=== PATIENT | male | born 1980 | race Hispanic/Latino ===

== ENCOUNTER 2016-12-10 17:50 | Inpatient (IN) | payer SELFPAY ==
[~2016-12-10] VITALS: Ht 175.3 cm; Wt 138.6 kg
[2016-12-10 18:10] VITALS: BP 135/91; PULSE 123; RESP 19; O2SAT 95
[2016-12-10 18:45] LABS: BASOPHILS % (AUTO) 0.2 % (0-3); EOSINOPHILS % (AUTO) 0 % (0-5); MONOCYTES % (AUTO) 6.7 % (4-12); Mean Corpuscular Hemoglobin 32.2 pg (27.0-35.0); Mean Corpuscular Volume 89.7 fL (81-100); NEUTROPHILS % (AUTO) 83.1 % (40-74); Platelet Count 203 bil/L (150-400)
[2016-12-10 19:29] LABS: Magnesium 1.6 mg/dL (1.6-2.6)
[2016-12-10 19:44] LABS: Lipase 941 U/L (13-60)
[2016-12-10 20:30] VITALS: BP 142/95; PULSE 122; RESP 28; O2SAT 96
--- NOTE | 2016-12-10 20:35 | ED.REPORT ---
HPI-Abd Pain M Under 38 Date of Service Dec 10, 2016 ED Provider: Jim Thorpe DO Pt is an otherwise healthy 36 year old male who presents to the ED complaining of abdominal pain onset yesterday. He c/o associated nausea and vomiting. He denies diarrhea. The pt was sent by urgent care after presenting with a blood sugar of 422. The pt denies DM, but he admits to excessive drinking 2 days ago. Nursing Notes Stated Complaint: ABD PAIN,HIGH GLUCOSE Chief Complaint: Male Abdominal Pain Nursing Notes Reviewed: Yes Allergies: Coded Allergies: No Known Allergies (Unverified , 12/11/16) No Active Prescriptions or Reported Meds General Time Seen by MD: 20:35 Chief Complaint Abdominal pain Hx Obtained From: Patient Arrived By: Walk-in Sudden in Onset?: No Onset Occurred: Yesterday Symptom Duration: Since onset Location: : Diffuse Quality: Painful Radiation: : Does not radiate Severity: Current: Moderate Severity: Maximum: Moderate Recent Healthcare: Recent doctor visit Similar Sx Previous: No Past Medical History Past Medical History Denies Past Surgical History Denies Smoking History Unknown if Ever Smoker Social History Alcohol Use: "Social" Drug Use: Denies drug use Other Social History: Good social support Review of Systems GI: Reports: Abdominal pain, Nausea, Vomiting, Denies: Diarrhea Complete sys rev & neg: except as marked. Physical Exam Initial Vital Signs Vital Signs (First) Date Time Temp Pulse Resp B/P Pulse Ox O2 Delivery O2 Flow Rate FiO2 12/10/16 18:10 37.5 123 19 135/91 95 Room Air Initial VS: Reviewed Head / Eyes: Atraumatic, Normocephalic Extremities: Vascular intact, Neuro intact Skin: Warm, Dry, No cyanosis Neurologic: Alert, Oriented Psychiatric: Mood/affect normal, Behavior normal General/Constitutional: Awake, Alert, Cooperative, Not toxic appearing Respiratory / Chest: Atraumatic, Breath sounds NL, Breath sounds = bilat Cardiovascular: Heart rate NL, Regular rhythm, Heart sounds NL Abdomen: Soft Tenderness/Guarding/Rebound: Positive: Tender diffuse (Moderate) Back: Atraumatic, Full range of motion Interpretation & Diagnostics Lab Results Interpretation Result Diagram: 12/11/16 0230 12/11/16 1508 Test 12/10/16 18:40 12/10/16 20:37 Hemoglobin A1c 13.0% (4.8-5.6) Lactic Acid Level 2.0mmol/L (0.4-2.0) Lipase 941U/L (13-60) Hold Braden Top Tube Received (Received) Ketones Small (Negative) Urine Color Yellow (YELLOW) Urine Appearance Clear (CLEAR,HAZY) Urine pH 5.5 (5.0-8.0) Urine Specific [place] 1.015 (1.003-1.035) Urine Protein Tracemg/dL (NEG,TRACE) Urine Glucose (UA) >1000mg/dL (NEGATIVE) Urine Ketones >80mg/dL (NEGATIVE) Urine Occult Blood Trace (NEGATIVE) Urine Nitrite Negative (NEGATIVE) Urine Bilirubin Negative (NEGATIVE) Urine Urobilinogen Normalmg/dL (NORMAL) Urine Leukocyte Esterase Negative (NEGATIVE) Urine RBC 0-2/hpf (0-2) Urine WBC 0-5/hpf (0-5) Urine Epithelial Cells Few/hpf (NONE-MOD) Urine Crystals None seen (NONE SEEN) Urine Bacteria Few/hpf (NONE-FEW) Urine Hyaline Casts None/lpf (NONE) Urine Granular Casts None seen (NONE SEEN) Urine Waxy Casts None seen (NONE SEEN) Urine Red Blood Cell Casts None seen (NONE SEEN) Urine White Blood Cell Casts None seen (NONE SEEN) Urine Mucus None seen (None Seen) Urine Trichomonas None seen (NONE SEEN) Urine Yeast None (NONE SEEN) Urinalysis Comment None Urine Culture Reflexed Not indicated ECG Interpretation ECG Interpretation: Sinus tachycardia with a rate of 120 Prolonged QT interval Time: 20:35 Interpreted by: ED physician CBC Interpretation WBC elevated BMP / CMP Interpretation Glucose elevated, Lipase elevated CT Abd / Pelvis Interpretation CONCLUSION: Findings of moderately severe acute pancreatitis. Mild Ascites. Minimal left pleural effusion. No finding of necrotizing necrotizing identified. Transmitted to the ED at 22:38 by Sukh Babin M.D Study type: Abdominal CT IV contrast Re-Eval/Medical Decision Med Decision/Clinical Course This is a very pleasant 36-year-old male who presents acutely ill. He is a heavy drinker and he drank heavily on Friday. Friday he developed diffuse abdominal pain. Since then he has had multiple bouts of vomiting and increasing diffuse pain. He was evaluated at the urgent care and he was found to be hyperglycemic and referred here. He does not have a history of diabetes. He was found to have diffusely tender abdominal examination with stable vitals. CT scan and laboratory work is consistent with acute pancreatitis and diabetic ketoacidosis. This gentleman was fluid resuscitated. Insulin drip initiated. He was also found to have severe hypocalcemia and this was treated as well. He will be admitted to the intensive care unit. Source of Hx: Old records Re-Evaluation/Progress : Time of Eval: 21:01 )( Re-Eval Abdomen: Soft Re-Evaluation/Progress Note: Pt rechecked. Informed pt of plan for admission. Pt understands and agrees with plan for admission. All questions were answered. Consultation : Referral / Consult Name: Estella Lowry Consulted With: Hospitalist Call Returned at: 22:54 Furrier Shop Supervisor: Will see patient, Agrees with eval, Agrees with plan, Accepts admit Differential Diagnosis: Positive: Abscess, Acute abdominal pain, Acute coronary syndrome, Angina / [place], Aortic dissection, Appendicitis, Inflam bowel disease Severity: Life-threatening, Serious condition Counseled Regarding: Diagnosis, Lab results, Need for admission Patient Discharge & Departure Primary Impression: Acute pancreatitis Pancreatitis type: alcohol induced Acute pancreatitis complication: unspecified Qualified Code: K85.20 - Alcohol induced acute pancreatitis without necrosis or infection Additional Impressions: Diabetic keto-acidosis Diabetes mellitus type: type 2 Diabetes mellitus complication detail: without coma Qualified Code: E13.10 - Other specified diabetes mellitus with ketoacidosis without coma Hypocalcemia Disposition: ADMITTED TO HOSPITAL Discharge Condition All VS Reviewed: Yes Condition: Stable Referrals: [facility] Crit Care Except Billable Proc Time Spent: 105-134 minutes (120 minutes managing IV fluids, insulin and pain control.) Services Performed: Patient management by me, Time spent at bedside, Reviewing test results, Reviewing imaging, Discussing patient care, Documentation in record, Time with fam/surrogate Scribe Attestation Portions of this note were transcribed by Qing Kumar. I, Dr. Fernandez personally performed the history, physical exam and medical decision-making; I reviewed and confirmed the accuracy of the information in the transcribed note. Signed by: Carrie Murrell, 12/10/16 and 21:00. copies to: [facility] Maurilio eFrnandez DO Dec 10, 2016 20:35 Qing Brice Dec 10, 2016 20:48 (NONE SEEN) Urine Red Blood Cell Casts None seen (NONE SEEN) Urine White Blood Cell Casts None seen (NONE SEEN) Urine Mucus None seen (None Seen) Urine Trichomonas None seen (NONE SEEN) Urine Yeast None (NONE SEEN) Urinalysis Comment None Urine Culture Reflexed Not indicated ECG Interpretation ECG Interpretation: Sinus tachycardia with a rate of 120 Prolonged QT interval Time: 20:35 Interpreted by: ED physician CT Abd / Pelvis Interpretation CONCLUSION: Findings of moderately severe acute pancreatitis. Mild Ascites. Minimal left pleural effusion. No finding of necrotizing necrotizing identified. Transmitted to the ED at 22:38 by Sukh Babin M.D Study type: Abdominal CT IV contrast Re-Eval/Medical Decision Source of Hx: Old records Re-Evaluation/Progress : Time of Eval: 21:01 )( Re-Eval Abdomen: Soft Re-Evaluation/Progress Note: Pt rechecked. Informed pt of plan for admission. Pt understands and agrees with plan for admission. All questions were answered. Consultation : Referral / Consult Name: AlenEstellamarietta Pelaez DO Consulted With: Hospitalist Call Returned at: 22:54 Furrier Shop Supervisor: Will see patient, Agrees with eval, Agrees with plan, Accepts admit Counseled Regarding: Diagnosis, Lab results, Need for admission Patient Discharge & Departure Primary Impression: Acute pancreatitis Pancreatitis type: alcohol induced Acute pancreatitis complication: unspecified Qualified Code: K85.20 - Alcohol induced acute pancreatitis without necrosis or infection Disposition: ADMITTED TO HOSPITAL Discharge Condition All VS Reviewed: Yes Condition: Stable Referrals: [facility] Carrie Attestation Portions of this note were transcribed by Qing Kumar. I, Dr. Fernandez personally performed the history, physical exam and medical decision-making; I reviewed and confirmed the accuracy of the information in the transcribed note. Signed by: Carrie Murrell, 12/10/16 and 21:00. copies to: [facility] Maurilio Fernandez DO Dec 10, 2016 20:35 Qing Brice Dec 10, 2016 20:48
[2016-12-10] MEDS ORDERED: 0.9% Sodium Chloride 1,000 ML IV ONE (20:40)
[2016-12-10] MEDS ORDERED: Calcium GLUCO 10% (mEq) Inj 9.3 MEQ in Dextrose 5% 100 ML IV ONE (20:40)
[2016-12-10 20:47] LABS: APPEARANCE,URINE CLEAR (CLEAR,HAZY); COLOR,URINE YELLOW (YELLOW); OCCULT BLOOD,URINE TRACE (NEGATIVE); PH,URINE 5.5 (5.0-8.0); UROBILINOGEN,URINE NORMAL (NORMAL)
[2016-12-10] MEDS: HYDROmorphone 0.5 mg/0.5 mL iSecure Syringe IVPUSH PRN ×2 (21:05→23:11)
[2016-12-10 23:07] VITALS: BP 146/83; PULSE 123; RESP 22; O2SAT 95
[2016-12-10] MEDS ORDERED: Ondansetron 2 mg/mL 2 mL Inj IVPUSH PRN (23:15)
[2016-12-10] MEDS ORDERED: Alum-Mag Hydrox-Simeth 30 mL Suspension PO PRN (23:15)
[2016-12-10] MEDS ORDERED: Senna-Docusate 8.6-50 mg Tablet PO PRN (23:15)
[2016-12-11] VITALS (7 sets, daily range): BP systolic 131–158; BP diastolic 94–103; PULSE 104–125; RESP 18–34; O2SAT 92–96
[2016-12-11] MEDS ORDERED: 0.9% Sodium Chloride 1,000 ML IV ONE (00:25)
[2016-12-11] MEDS: Insulin Human REGular 100 Units/100 mL NS IV SCH ×6 (00:59→20:47)
[2016-12-11] MEDS: Thiamine Inj 200 MG in Dextrose 5% 50 ML IV SCH ×2 (01:05→21:21)
--- NOTE | 2016-12-11 01:28 | ABG ---
DateTimeAnalyzed 01:20:16 -_ pH ____7.336 - 7.350 7.450 pCO2 ___28.1__ -mmHg 35.0 45.0 pO2 ___77.2__ -mmHg 69.0 116 HCO3- ___15.0__ -mmol/L 22.0 26.0 ABE ___-9.6__ -mmol/L tHb ___16.8__ -g/dL O2Hb ___94.2__ -% COHb ____1.7__ -% 1.5 MetHb ____0.4__ -% sO2 ___96.2__ -% FIO2 ___21.0__ -% Drawn By blf - Date/Time Notified____ 01:27:00 -_ Spontaneous_RR 30 -b/min Oxygen Device 1 _ROOM AIR - Notified By blf - Notified Whom YOSEPH DIALLO RN - K+ ____3.2__ -mmol/L tO2 ___22.3__ -Vol% Stas test _Positive -
[2016-12-11] MEDS: HYDROmorphone 1 mg/mL Inj IVPUSH PRN ×3 (01:45→21:20)
[2016-12-11] MEDS: 0.9% Sodium Chloride 1,000 ML IV SCH ×3 (01:45→16:25)
[2016-12-11 02:51] LABS: BASOPHILS % (AUTO) 0.2 % (0-3); EOSINOPHILS % (AUTO) 0 % (0-5); MONOCYTES % (AUTO) 6.6 % (4-12); Mean Corpuscular Hemoglobin 32.4 pg (27.0-35.0); Mean Corpuscular Volume 90.2 fL (81-100); NEUTROPHILS % (AUTO) 82.6 % (40-74); Platelet Count 194 bil/L (150-400)
--- NOTE | 2016-12-11 02:51 | PCM.HPMED ---
Subjective Date of Service Dec 11, 2016 Primary Provider: Admitting Physician: Estella Lowry DO Primary Care Physician: Breanna Attending Physician: Estella Lowry DO Admit Status: From the Emergency Department Chief Complaint: Patient is a 36-year-old male without significant medical history presents to the ED with 2 days of significant periumbilical pain. History of Present Illness: Per patient, states heavy EtOH use last Friday, 20 beers in the evening, then woke up on Friday morning with nausea, vomiting and significant epigastric pain that wraps around the back. Pain was unabated, characterized as somewhat wax and wane pattern. Patient was unable to tolerate any by mouth intake. Patient admits he has not been eating or drinking well for the past 2 days. Patient sought help at urgent care yesterday evening, where he was then referred to the ED for further evaluation after discovery of a blood glucose of 422, respiratory rate of 22, in addition to acetone breath. Patient denies any fevers, chills, or night sweats within the last few days. In the ED, patient was found to have elevated lipase of 941, in addition to an anion gap metabolic acidosis with ketones and glucose>1000 in the urine. Patient was thus admitted to the ICU for diabetic ketoacidosis in addition to acute pancreatitis, and possible alcohol withdrawal. Patient admits to endorsing at least 20 cans of 3% EtOH beers every other day for over 10 years. Patient has tried to quit once 7 years ago, at that time denies any withdrawal symptoms. Patient denies any smoking or use of street drugs. Patient states that he is usually in a state of good health thus, patient has not been seen by a primary care provider for at least over 5 years. Patient is unaware that he has any histories of diabetes. Pt is unaware of symptoms of polydipsia, polyphagia, or polyuria. Review of Systems: A comprehensive review of systems was conducted with the patient and found to be negative except as above in the History of Present Illness. Allergies Coded Allergies: No Known Allergies (Unverified , 12/11/16) Home Medications Denies taking any prescribed or pdbg-glc-gdhlxge medications No herbal supplements PMH Denies any past medical histories Never been hospitalized Surgical History Denies any surgical history Family History Father with diabetes type II [place] and a family history of early from coronary artery disease Social History Hx Alcohol Use: Yes (over 10 years) Hx Substance Use: No Smoking Status: Unknown if Ever Smoker Living Arrangement: with Family (lives with and small child) Exam Vital Signs Vital Sign - Last Date Time Temp Pulse Resp B/P Pulse Ox O2 Delivery O2 Flow Rate FiO2 12/11/16 00:39 37.6 119 25 149/97 96 Room Air Exam General: No acute distress, appropriately interactive, observed transferring self from gurney to bed, morbidly obese HEENT: Normocephalic, atraumatic. PERRLA, EOMI, Anicteric sclerae, moist conjunctivae. Neck: No JVD, No bruits. No lymphadenopathy or thyromegaly. Neck circumference greater than 19 inch Cardiovascular: Regular rate and rhythm with no murmurs, rubs, or gallops appreciated Pulmonary: b/l air sound with no crackles, wheezes, or rhonchi. no use of accessory muscles. Abdomen: Hypoactive bowel sounds, soft, nondistended, tenderness around the epigastric and back, no rebound tenderness, negative for Brasher sign, size of retroperitoneal bleeding Extremities: No clubbing or cyanosis, no lymphedema, no b/l lower leg edema Skin: Normal temperature, turgor, and texture; no rash. No visualized skin ulcer. Numerous skin tags around the neck and shoulder, acanthosis nigricans around the neck Neurological: CN II-VII grossly intact, moving equally on all 4 extremities Psychiatric: Normal mood and affect. AOx3 Lab and Diagnostics Result Diagram: 12/10/16 1840 12/10/16 1840 X-Rays, CTs and MRIs CT Abd / Pelvis Interpretation 12/10/2016 CONCLUSION: Findings of moderately severe acute pancreatitis. Mild Ascites. Minimal left pleural effusion. No finding of necrotizing necrotizing identified. Transmitted to the ED at 22:38 by Sukh Babin M.D Assessment & Plan Pt is a 36-year-old male without any significant medical history presented with epigastric pain, admitted for pancreatitis and diabetes ketoacidosis. Diabetic ketoacidosis, present on admission, active - Likely secondary to pancreatitis in the setting of undiagnosed diabetes type II - Initial anion gap at least 24.6, with ketones in the urine, and glucose of 458 - Patient received 2 L of bolus fluid, DKA protocol activated - Will start on lantus 26units daily once gap closes -hgba1c pending Acute pancreatitis, present on admission, active - has classic presentation abdominal pain with elevated lipase and CT-imaging to support - likely secondary to heavy EtOH abuse. BISAP score =1, low risk mortality. - "Pancreas rest", NPO for now. - Hydromorphone IV prn, antinausea medication when necessary - Cont NS 125cc/hr. Titrated to urine output greater than 0.5 mL/kg/hr. Anion gap metabolic acidosis, present on admission, active - Likely due to a combination of DKA and discontinuation alcohol ingestion - No secondary acid base disorder given Delta/delta =1 - Continue to monitor, hydrate as above Diabetes type II, present on admission, active - A1c pending, consider adding SGLT2 inhibitors at discharge if A1c >8 - will start with Lantus 26 units qd, will add short acting insulin sliding scale once patient eats - Diabetes education ordered Leukocytosis, present on admission, active - Likely reactive - Monitor Alcohol use disorder, present on admission, active - Supplement IV thiamine, start folate and vitamin B12 when patient can tolerate PO - CIWA protocol with withdrawal symptoms - Consult case management ordered Elevated blood pressure, present on admission, active - likely essential hypertension, probable obstructive sleep apnea - consider lisinopril once tolerate PO. - Will need sleep study outpatient Pseudohyponatremia, present on admission, active - Corrected sodium 134, normal - monitor Na Hypocalcemia, present on admission, active - replenished QT prolongation, present on admission, stable - QTc 525 - judicious use of ondansetron Morbid obesity, present on admission, stable - consulted dietitian. Will need weight lost strategies in addition to DM managements DVT prophylaxis: Lovenox subcutaneous Patient Status: Patient is admitted under inpatient status with expected length of stay GREATER than 2 midnights due to severity of presenting symptoms, risk of adverse event, and complexity of treatment plan. VTE Prophylaxis: Sub-Q Enoxaparin Resuscitation Status: CPR: Attempt Resuscitation Attending Statement The patient was seen and examined together with house staff on 12/11/2016 and I agree with the history, exam and plan as outlined in the note above. Gino Gordon DO Dec 11, 2016 02:51 Estella Lowry DO Dec 11, 2016 04:37
[2016-12-11] MEDS ORDERED: CALCIUM CHL IV ONE (04:00)
[2016-12-11] MEDS ORDERED: DEXTROSE 5% IV ONE (04:00)
[2016-12-11] MEDS ORDERED: KCl 40 mEq/500 mL D5W(K 3 - 3.7 & Creat < 2) IV ONE ×2 (04:55→22:15)
[2016-12-11] MEDS ORDERED: Mag Sulf 4 Gm/100 mL IV Premix (Mag < 1.6 & Creat < 2) IV ONE (04:55)
--- NOTE | 2016-12-11 06:12 | NUR ---
Admission to CCU Pt transferred from ER to CCU Room # 2011 at exactly midnight (0000). Pt able to stand himself up from the stretcher, walk to the scale and then back to the bed. Pt A&Ox4, can PEOPLES. Pt Tachycardic at 120-130bpm, Tachypnic at RR25-35, SpO2 >95% on RA at rest. Pt takes no medications and has not seen a doctor in 6 years. Admission completed. MRSA Swab collected and sent to lab. DKA insulin drip started. Anion GAP 29, now 25. Pt remains NPO due to DKA and Pancreatitis. Pt states his pain is controlled "well" with the current medications (Dilaudid 0.5mg Q4 Hours PRN). Pt reports no nausea. Pt given diabetes information booklet in Nauruan as this is a new diagnosis for him. Pt has low health literacy and will require lots of education about his health and taking care of himself. His is at bedside throughout the night.
--- NOTE | 2016-12-11 06:47 | NUR ---
Progress Note Pt continues to have increasing back pain. Pt endorses chronic back pain. Pt urinated multiple times throughout the night in incriments of about 100ml. Pt denies having to urinate this frequently in the past. Pt diaphoretic. Blood sugar checked and remains unchanged from last hourly level.
[2016-12-11] MEDS: D5W1/2NS 1,000 mL IV PRN ×2 (07:56→15:38)
--- NOTE | 2016-12-11 09:13 | DRSVH ---
PROCEDURE: CT ABDOMEN AND PELVIS WITH CONTRAST ([id number]) INDICATIONS: 36 year-old with abdominal pain, pancreatitis. TECHNIQUE: After the administration of intravenous contrast, 5 mm thick sections acquired from the diaphragm to the symphysis. 5 mm coronal and sagittal reformats were acquired. For radiation dose reduction, the following was used: automated exposure control, adjustment of mA and/or kV according to patient siz e. COMPARISON: None. FINDINGS: Image quality: Excellent. ABDOMEN: Lung bases: There is trace left effusion. Mild bibasilar atelectasis. Heart size is normal. Solid organs: There is diffuse hepatic fatty eventration. Liver and spleen are normal in size and en hancement. Gallbladder may contain gallstones or sludge. Biliary system is non dilated. There is d iffuse pancreatic edema. There is fluid around pancreas with peripancreatic stranding consistent with acute pancreatitis. Pancreas enhances uniformly. No pancreatic duct dilation or calcification. No p ancreatic pseudocyst. No adrenal nodules. Kidneys demonstrate normal size and enhancement, without h ydronephrosis. Peritoneum and bowel: The duodenum appear thickened. Bowel loops demonstrate normal wall thickness a nd caliber. The appendix is normal. No free air. There is a small amount of free fluid. Nodes and vessels: No retroperitoneal or mesenteric adenopathy by size criteria. Aorta and inferior vena cava are normal in size. Miscellaneous: No ventral hernias. PELVIS: Genitourinary: Bladder wall thickness is normal. Miscellaneous: No inguinal hernias or adenopathy. Bones: No suspicious bony lesions. No vertebral body compression fractures. IMPRESSION: 1. The CT findings are consistent with acute pancreatitis. 2. Second duodenum consistent with duodenitis. This finding may be secondary to direct spread of infl ammation from acute pancreatitis. Recommend clinical correlation followup. 3. Possible gallstones. 4. Hepatic steatosis. 5. A small amount of ascites. 6. Trace left effusion. No significant discrepancy with the material handler 1st shift radiology preliminary report. Dictated by: Keeley Shirley M.D. on 12/11/2016 at 9:04 Approved by: Keeley Shirley M.D. on 12/11/2016 at 9:11
[2016-12-11] MEDS ORDERED: HYDROmorphone 0.5 mg/0.5 mL iSecure Syringe ONE ×2 (10:29→15:36)
--- NOTE | 2016-12-11 13:15 | NUR ---
NUTRITION ASSESSMENT: ASSESS: Pt is a 36yo M admitted to CCU for pancreatitis and new diagnosis of DM. Currently NPO and on DKA protocol and CIWA protocol. 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 Pt and have been trying to lose wt by drinking apple cider vinegar in the morning and at night. PMHX: no PMH LABS: Reviewed. Na 133, client care representative .54, glu 230, ca 6.9, Alb 3.1, A1C 13.0 MEDS: Reviewed. Thiamine, Zofran, insulin GI: 0 BM SKIN: no major issues CURRENT WTS: 132.7kg, BMI 43.2kg/m2, IBW: 72.7kg, adj BW: 87.7kg DIET: NPO EST. NEEDS: BMI Kcals: 2195-2630kcal/day (25-30kcal/kg adj bw) Pro: 105-130g/day (1.2-1.5g/kg adj bw) NUTRITION DIAGNOSIS: 1.) Altered nutrition related lab values related to endocrine dysfunction as evidence by new diagnosis of DM and A1C of 13.0 2.) Inadequate oral intake related to decreased ability to consume sufficient energy as evidenced by current NPO status NUTRITION INTERVENTION: 1.) DM diet education provided w/economic forecaster. Please see inpt dm diet ed under care activity for further information regarding education 2.) Briefly discussed how drinking large amounts of alcohol can fill you up and make you not hungry for food which can lead to many health issues including malnutrition. Pt verbalized importance of eating regular meals/portions and avoiding alcohol. Understands need to make change in diet/lifestyle. 3.) Recommend advance diet when medically appropriate. MONITOR / EVAL: NPO, wt, gi, labs, POC, nutrition status. Will continue to monitor per high nutrition risk guidelines
--- NOTE | 2016-12-11 16:11 | NUR ---
Continued abd & back discomfort relieved with Dilaudid IVPs as ordered. Denies nausea, wants to eat. Is able to take ice chips this afternoon. Insulin and IVFs per DKA protocol, anion gap 14. Current CMP pending. Most likely will transition to SQ insulin and transfer to PCC/tele status. Voiding dark blake urine, small, frequent amounts via urinal. Vital signs stable, low-grade temp improved. Sinus tachycardia on tele, somewhat hypertensive persistently. Has declined jumpbasting canvas baster; supportive Bulgarian and Ecuadorean-speaking at bedside.
[2016-12-11] MEDS ORDERED: Glucose 40% Oral Gel 15 Gm Tube PO PRN (18:00)
[2016-12-11] MEDS ORDERED: Dextrose 10% 250 ML IV PRN (18:00)
[2016-12-11] MEDS ORDERED: 0.9% Sodium Chloride 1,000 ML IV SCH (18:40)
[2016-12-11] MEDS: Insulin LISPRO 300 Unit/3 mL Inj SUBQ SCH ×2 (19:09→22:00)
[2016-12-11] MEDS ORDERED: Insulin GLARgine 100 Unit/mL Syringe SUBQ SCH ×2 (21:00)
--- NOTE | 2016-12-11 21:33 | PCM.PNMED ---
Subjective Date of Service Dec 11, 2016 Subjective Overnight Events. No acute events overnight. He is resting in bed and is having some lower back pain, but in no acute distress. He's been having abdominal pain 3/10, back pain 3/10, nausea and dry heaving. The patient denies headache, dizziness, sore throat, cough, chest pain , shortness of breath, constipation, and diarrhea. The patient is voiding and eliminating without difficulty. Exam Vital Signs Vital Sign - Last Date Time Temp Pulse Resp B/P Pulse Ox O2 Delivery O2 Flow Rate FiO2 12/11/16 15:51 37.0 109 20 158/103 95 Room Air Intake and Output 12/10/16 12/10/16 12/11/16 Cumulative From/Thru 15:00 23:00 07:00 12/10/16 18:10 - 12/11/16 05:35 Intake Total 2065 ml 2065 ml Output Total 1080 ml 1080 ml Balance 985 ml 985 ml Intake Oral 0 ml 0 ml IV Total 2065 ml 2065 ml Output Urine Total 1080 ml 1080 ml # Bowel Movements 0 0 Exam General: No acute distress, well-developed, well-nourished, appropriately interactive, morbidly obese HEENT: Normocephalic, atraumatic. Anicteric sclerae, moist conjunctivae Cardiovascular: Regular rate and rhythm with no murmurs, rubs, or gallops appreciated Pulmonary: Clear to auscultation bilaterally with no crackles, wheezes, or rhonchi. Normal respiratory effort with no use of accessory muscles. Abdomen: Bowel tones present. Soft, tender RUQ and LUQ > LLQ , nondistended. No hepatosplenomegaly or masses appreciated. Extremities: No clubbing, cyanosis, edema Skin: Normal temperature, dry, cracking skin Neurological: Cranial nerves grossly intact. Normal muscle strength, tone, and bulk. Psychiatric: Normal mood and affect. Alert and oriented to person, place, and time. Lab and Diagnostics Laboratory Tests 72 Hours Test 12/10/16 18:40 12/10/16 20:37 12/10/16 23:27 12/11/16 00:00 White Blood Count 12.0th/mm3 (3.8-10.1) Red Blood Count 5.43mil/mm3 (4.40-5.80) Hemoglobin 17.5g/dL (13.8-17.2) Hematocrit 48.7% (41.0-50.0) Mean Corpuscular Volume 89.7fL (81-100) Mean Corpuscular Hemoglobin 32.2pg (27.0-35.0) Mean Corpuscular Hemoglobin Concent 35.9% (32.0-37.0) Red Cell Distribution Width 12.7% (12.3-15.4) Platelet Count 203bil/L (150-400) Neutrophils (%) (Auto) 83.1% (40-74) Lymphocytes (%) (Auto) 9.7% (14-46) Monocytes (%) (Auto) 6.7% (4-12) Eosinophils (%) (Auto) 0% (0-5) Basophils (%) (Auto) 0.2% (0-3) Sodium Level 125mEq/L (134-144) Potassium Level 4.4mEq/L (3.5-5.2) Chloride Level 84mEq/L (97-108) Carbon Dioxide Level 12mmol/L (18-29) Blood Urea Nitrogen 10mg/dL (6-20) Creatinine 0.81mg/dL (0.76-1.27) Estimat Glomerular Filtration Rate 113mL/min (>59) Glucose Level 458mg/dL (60-99) Hemoglobin A1c 13.0% (4.8-5.6) Lactic Acid Level 2.0mmol/L (0.4-2.0) Calcium Level 6.1mg/dL (8.5-10.1) Magnesium Level 1.6mg/dL (1.6-2.6) 1.6mg/dL (1.6-2.6) Total Bilirubin 0.6mg/dL (0.0-1.2) Aspartate Amino Transf (AST/SGOT) < 5U/L (0-50) Alanine Aminotransferase (ALT/SGPT) < 5U/L (0-44) Alkaline Phosphatase 71U/L (25-150) Total Protein 7.1g/dL (6.4-8.4) Albumin 3.5g/dL (3.4-5.0) Lipase 941U/L (13-60) Hold Braden Top Tube Received (Received) Ketones Small (Negative) Urine Color Yellow (YELLOW) Urine Appearance Clear (CLEAR,HAZY) Urine pH 5.5 (5.0-8.0) Urine Specific [place] 1.015 (1.003-1.035) Urine Protein Tracemg/dL (NEG,TRACE) Urine Glucose (UA) >1000mg/dL (NEGATIVE) Urine Ketones >80mg/dL (NEGATIVE) Urine Occult Blood Trace (NEGATIVE) Urine Nitrite Negative (NEGATIVE) Urine Bilirubin Negative (NEGATIVE) Urine Urobilinogen Normalmg/dL (NORMAL) Urine Leukocyte Esterase Negative (NEGATIVE) Urine RBC 0-2/hpf (0-2) Urine WBC 0-5/hpf (0-5) Urine Epithelial Cells Few/hpf (NONE-MOD) Urine Crystals None seen (NONE SEEN) Urine Bacteria Few/hpf (NONE-FEW) Urine Hyaline Casts None/lpf (NONE) Urine Granular Casts None seen (NONE SEEN) Urine Waxy Casts None seen (NONE SEEN) Urine Red Blood Cell Casts None seen (NONE SEEN) Urine White Blood Cell Casts None seen (NONE SEEN) Urine Mucus None seen (None Seen) Urine Trichomonas None seen (NONE SEEN) Urine Yeast None (NONE SEEN) Urinalysis Comment None Urine Culture Reflexed Not indicated Triglycerides Level 379.2mg/dL (0-149) Osmolality 302 (275-300) Test 12/11/16 02:30 12/11/16 09:06 12/11/16 15:08 12/11/16 17:40 White Blood Count 9.8th/mm3 (3.8-10.1) Red Blood Count 5.12mil/mm3 (4.40-5.80) Hemoglobin 16.6g/dL (13.8-17.2) Hematocrit 46.2% (41.0-50.0) Mean Corpuscular Volume 90.2fL (81-100) Mean Corpuscular Hemoglobin 32.4pg (27.0-35.0) Mean Corpuscular Hemoglobin Concent 35.9% (32.0-37.0) Red Cell Distribution Width 12.7% (12.3-15.4) Platelet Count 194bil/L (150-400) Neutrophils (%) (Auto) 82.6% (40-74) Lymphocytes (%) (Auto) 10.2% (14-46) Monocytes (%) (Auto) 6.6% (4-12) Eosinophils (%) (Auto) 0% (0-5) Basophils (%) (Auto) 0.2% (0-3) Sodium Level 133mEq/L (134-144) 133mEq/L (134-144) 134mEq/L (134-144) 133mEq/L (134-144) Potassium Level 3.3mEq/L (3.5-5.2) 3.8mEq/L (3.5-5.2) 3.6mEq/L (3.5-5.2) 3.7mEq/L (3.5-5.2) Chloride Level 95mEq/L (97-108) 100mEq/L (97-108) 101mEq/L (97-108) 101mEq/L (97-108) Carbon Dioxide Level 14mmol/L (18-29) 19mmol/L (18-29) 19mmol/L (18-29) 19mmol/L (18-29) Blood Urea Nitrogen 10mg/dL (6-20) 9mg/dL (6-20) 9mg/dL (6-20) 9mg/dL (6-20) Creatinine 0.68mg/dL (0.76-1.27) 0.54mg/dL (0.76-1.27) 0.46mg/dL (0.76-1.27) 0.39mg/dL (0.76-1.27) Estimat Glomerular Filtration Rate 139mL/min (>59) 181mL/min (>59) 218mL/min (>59) 263mL/min (>59) Glucose Level 336mg/dL (60-99) 230mg/dL (60-99) 202mg/dL (60-99) 231mg/dL (60-99) Calcium Level 6.2mg/dL (8.5-10.1) 6.9mg/dL (8.5-10.1) 6.6mg/dL (8.5-10.1) 6.7mg/dL (8.5-10.1) Total Bilirubin 0.6mg/dL (0.0-1.2) Aspartate Amino Transf (AST/SGOT) 16U/L (0-50) Alanine Aminotransferase (ALT/SGPT) 14U/L (0-44) Alkaline Phosphatase 62U/L (25-150) Total Protein 6.2g/dL (6.4-8.4) Albumin 3.1g/dL (3.4-5.0) Magnesium Level 3.0mg/dL (1.6-2.6) Test 12/11/16 20:40 Result Diagram: 12/11/16 0230 12/11/16 1740 Microbiology Microbiology 12/11/16 MRSA (PCR) - negative X-Rays, CTs and MRIs CT Abd / Pelvis Interpretation 12/10/2016 CONCLUSION: Findings of moderately severe acute pancreatitis. Mild Ascites. Minimal left pleural effusion. No finding of necrotizing necrotizing identified. Transmitted to the ED at 22:38 by Sukh Babin M.D 12-lead ECG Sinus tachycardia with a rate of 120 Prolonged QT interval Assessment & Plan Pt is a 36-year-old male without any significant medical history presented with epigastric pain, admitted for pancreatitis and diabetes ketoacidosis. Diabetic ketoacidosis, present on admission, improving - Likely secondary to pancreatitis in the setting of undiagnosed diabetes type II - Initial anion gap at least 24.6, with ketones in the urine, and glucose of 458. Now improved to anion gap of 14 and glucose of 204. - Patient received 2 L of bolus fluid, DKA protocol now discontinued. Started NS + 30 mEq potassium at 150 mL/hour - Started on 40 units of Lantus with high dose correctional scale. Patient recieved 103 units of insulin over 12 hours on drip. - hgba1c 13 Acute pancreatitis, present on admission, active - has classic presentation abdominal pain with elevated lipase and CT-imaging to support - likely secondary to heavy EtOH abuse. BISAP score =1, low risk mortality. - "Pancreas rest", NPO for now. Can advance to clear liquids over night if patient is tolerating pain. - Hydromorphone IV prn, antinausea medication when necessary - Fluids as above Diabetes type II, present on admission, active - A1c 13 - Started Lantus 40 units qd with high dose correctional scale. - Diabetes education ordered Alcohol use disorder, present on admission, active - Supplement IV thiamine, start folate and vitamin B12 when patient can tolerate PO - CIWA protocol with withdrawal symptoms - Consult case management ordered Elevated blood pressure, present on admission, active - likely essential hypertension, probable obstructive sleep apnea - consider lisinopril once tolerate PO. - Will need sleep study outpatient Pseudohyponatremia, present on admission, active - Corrected sodium 136, normal - monitor Na Hypocalcemia, present on admission, active - replenished QT prolongation, present on admission, stable - QTc 525 - judicious use of ondansetron Morbid obesity, present on admission, stable - consulted dietitian. Will need weight lost strategies in addition to DM managements Anion gap metabolic acidosis, present on admission, resolved - Likely due to a combination of DKA and discontinuation alcohol ingestion - No secondary acid base disorder given Delta/delta =1 - Continue to monitor, hydrate as above Leukocytosis, present on admission, resolved - Likely reactive - Monitor High Risk medications: None DVT prophylaxis: Lovenox subcutaneous Disposition: Patient will likely require at least 2-3 more days of hospital stay , following advancing diets to full diet and stabilization of anion gap and blood glucose. Pain Evaluation: Adequate Pain Control VTE Prophylaxis: Sub-Q Enoxaparin Resuscitation Status: CPR: Attempt Resuscitation Attending Statement The patient was seen and examined together with Dr. Villarreal on 12/11/2016 and I agree with the history, exam and plan as outlined in the note above. . Sumeet Villarreal DO Dec 11, 2016 21:33 Yusuf Bonds MD Dec 13, 2016 07:02
[2016-12-11] MEDS: Dextrose 5% 0.9% NaCl 1,000 ML IV SCH (21:54)
--- NOTE | 2016-12-11 22:21 | NUR ---
Transfer to CCU Pt transferred back to CCU status for DKA insulin gtt to close anion gap. K Nicolás infusing for low K level. Thiamine infusing.
[2016-12-12] MEDS: HYDROmorphone 1 mg/mL Inj IVPUSH PRN ×4 (02:15→17:16)
[2016-12-12] MEDS: Dextrose 5% 0.9% NaCl 1,000 ML IV SCH (02:32)
[2016-12-12] MEDS ORDERED: Insulin Human REGular 100 Units/100 mL NS IV SCH ×2 (03:05)
[2016-12-12 04:35] LABS: BASOPHILS % (AUTO) 0.3 % (0-3); MONOCYTES % (AUTO) 9.5 % (4-12); Mean Corpuscular Volume 92.2 fL (81-100); NEUTROPHILS % (AUTO) 71.5 % (40-74); Platelet Count 156 bil/L (150-400)
[2016-12-12 04:55] LABS: Phosphorus 1.2 mg/dL (2.5-4.9)
[2016-12-12] MEDS: 0.9% Sodium Chloride 1,000 ML IV SCH ×3 (05:27→23:39)
[2016-12-12 05:39] VITALS: BP 143/94; PULSE 98; RESP 19; O2SAT 97
--- NOTE | 2016-12-12 05:43 | NUR ---
Transfer to [facility] Pt d/c'ed from CCU at 0540 this morning. Pt removed from DKA insulin drip and started on NDKA insulin drip to maintain tight control of the patient's blood sugars. Currently he is on algorithm 3 at 5units/hour. NS infusing at 100ml/hour; and D5NS infusing at 50ml/hour. Pt having sips and chips. Tolerated well. Pt having frequency with urination and poor output. Tried three times to bladder scan patient on two occasions with two separate nurses and was unable to obtain a bladder volume. Pt refused in and out cath at this time. Will pass along information to day team/day RN. Pt received KCL rider this afternoon in addition to scheduled Thiamine. Oxygenation needs increasing despite clear lung sounds and poor urine output/adequate kidney function tests. Pt requires 2L NC while up in chair to maintain saturation of 95% and 4L NC HS while sleeping. Suspect strongly that patient has profound obstructive sleep apnea. [facility] screening form/protocol and referral completed and faxed to listed number. Pt was incontinent of urine once last night.
[2016-12-12 08:00] VITALS: PULSE 101
[2016-12-12 08:30] VITALS: BP 140/94; PULSE 102; RESP 13; O2SAT 94
[2016-12-12] MEDS ORDERED: Potassium Phos (mEq) Inj 20 MEQ in Dextrose 5% 250 ML IV ONE (08:30)
[2016-12-12] MEDS: Multivit-Miner-Folic Acid-Iron Tablet PO SCH (08:30)
[2016-12-12] MEDS: chlordiazePOXIDE 25 mg Capsule PO PRN (11:15)
[2016-12-12 12:45] VITALS: BP 125/73; PULSE 103; RESP 20; O2SAT 96
--- NOTE | 2016-12-12 15:23 | NUR ---
Social Work: Chemical Dependency Assessment Data: Per EMR review, pt is a 36 year old male admitted for acute pancreatitis, hypocalcemia. Pt is self-pay insurance; [facility] has screened the patient for Medicaid. The patient is over-resourced for medicaid and is self-pay. Pt has no PCP. NOK is Cecy Gómez, . Advanced directives not completed- Croatian directives provided to pt. Readmit score is low, 1/8. DIAGNOSTIC RADIOLOGIC TECHNOLOGIST met with pt and spouse at bedside to discuss discharge planning and complete CD assessment. Pt declined use of an parole officer and wishes for his to translate. Pt and live together in [place], Pt is I at baseline, uses no DME and continues to drive. Current ETOH use: pt states that he consumes approximately an 18pack of beer every 2-3 days. Pt states he has never experienced any withdrawal symptoms including ETOH seizures. Pt has never completed treatment and states that he does not feel that he needs it at this time. The pt's however states that the pt would benefit and would like some information. DIAGNOSTIC RADIOLOGIC TECHNOLOGIST provided her with outpatient CD resources including [facility]. MH History/Suicide Risk: Pt denies any MH history and any current or past suicidal/homicidal ideation, plan or intent. Natural supports: Pt states that his and family are his biggest supports. Plan: Pt is agreeable to a referral being made to [facility] for primary care and he states that his plan is to return to the ER/hospital for regular care. DIAGNOSTIC RADIOLOGIC TECHNOLOGIST requested [employer] make pt a new patient appointment at [facility]. Pt's spouse provided with outpatient CD resources along with AA schedule. Anticipate pt to discharge home via POV once medically stable; DIAGNOSTIC RADIOLOGIC TECHNOLOGIST to continue to follow. KIANA Mccurdy
[2016-12-12] MEDS ORDERED: Dextrose 10% 250 ML IV PRN (16:05)
[2016-12-12] MEDS ORDERED: Glucose 40% Oral Gel 15 Gm Tube PO PRN (16:05)
[2016-12-12] MEDS: Insulin LISPRO 300 Unit/3 mL Inj SUBQ SCH ×2 (17:58→22:00)
[2016-12-12 19:37] LABS: Phosphorus 1.4 mg/dL (2.5-4.9)
--- NOTE | 2016-12-12 20:14 | NUR ---
Abd pain/tele Pt. reporting abd. pain to be 3-5/10. IV dilaudid 0.5mg has been helpful, hopefully transitioning to po pain mng. Pt. denied having any n/v. Pt. was on insulin gtt, reading in the 160s-170s. At 1500, Dr. Bonds ordered for insulin to be stopped as well as the D5NS. Pt. continues to have IV fluids infusing per orders. AC blood sugar was 168, pt. was given 2units of coverage. CIWA, pt. has been 0, with some mild sweating. Pt. was given po librium x1 with good relief. , Cecy at bedside. Tele has been reading ST in the 90s, occassional 120s with activity. Report given to onel Pelayo RN to continue care.
[2016-12-12 20:26] VITALS: BP 137/83; PULSE 96; RESP 22; O2SAT 96
[2016-12-12] MEDS: Thiamine Inj 200 MG in Dextrose 5% 50 ML IV SCH (20:26)
[2016-12-12] MEDS ORDERED: Insulin GLARgine 100 Unit/mL Syringe SUBQ SCH (21:00)
[2016-12-12 22:54] VITALS: BP 147/87; PULSE 97; RESP 16; O2SAT 94
--- NOTE | 2016-12-12 23:00 | PCM.PNMED ---
Subjective Date of Service Dec 12, 2016 Subjective Overnight Events. 10 PM, Pt transferred back to CCU status for DKA insulin gtt to close anion gap. 540 AM Pt d/c'ed from CCU and removed from DKA insulin drip and started on NDKA insulin drip to maintain tight control of the patient's blood sugars. He is resting in bed comfortably and in no acute distress. The patient reports feeling better than the day prior. His abdominal pain is improved as well as his nausea. He is still having sweating and some anxiety. The patient denies headache, dizziness, sore throat, cough, chest pain, shortness of breath, vomiting, constipation, and diarrhea. Exam Vital Signs Vital Sign - Last Date Time Temp Pulse Resp B/P Pulse Ox O2 Delivery O2 Flow Rate FiO2 12/12/16 20:26 38.0 96 22 137/83 96 Nasal Cannula 2.00 Intake and Output 12/11/16 12/11/16 12/12/16 Cumulative From/Thru 15:00 23:00 07:00 12/10/16 18:10 - 12/12/16 05:37 Intake Total 4513 ml 4204 ml 17542 ml Output Total 750 ml 580 ml 2410 ml Balance 3763 ml 3624 ml 8372 ml Intake Oral 50 ml 50 ml 100 ml IV Total 4463 ml 4154 ml 20575 ml Output Urine Total 750 ml 580 ml 2410 ml # Voids 1 1 # Bowel Movements 0 0 0 Exam General: No acute distress, well-developed, well-nourished, appropriately interactive, morbidly obese HEENT: Normocephalic, atraumatic. Anicteric sclerae, moist conjunctivae Cardiovascular: Regular rate and rhythm with no murmurs, rubs, or gallops appreciated Pulmonary: Clear to auscultation bilaterally with no crackles, wheezes, or rhonchi. Normal respiratory effort with no use of accessory muscles. Abdomen: Bowel tones present. Soft, tender RUQ and LUQ > LLQ improved from yesterday , nondistended. No hepatosplenomegaly or masses appreciated. Extremities: No clubbing, cyanosis, edema Skin: Normal temperature, dry, cracking skin Neurological: Cranial nerves grossly intact. Normal muscle strength, tone, and bulk. Psychiatric: Normal mood and affect. Alert and oriented to person, place, and time. Lab and Diagnostics Laboratory Tests 72 Hours Test 12/10/16 18:40 12/10/16 20:37 12/10/16 23:27 12/11/16 00:00 White Blood Count 12.0th/mm3 (3.8-10.1) Red Blood Count 5.43mil/mm3 (4.40-5.80) Hemoglobin 17.5g/dL (13.8-17.2) Hematocrit 48.7% (41.0-50.0) Mean Corpuscular Volume 89.7fL (81-100) Mean Corpuscular Hemoglobin 32.2pg (27.0-35.0) Mean Corpuscular Hemoglobin Concent 35.9% (32.0-37.0) Red Cell Distribution Width 12.7% (12.3-15.4) Platelet Count 203bil/L (150-400) Neutrophils (%) (Auto) 83.1% (40-74) Lymphocytes (%) (Auto) 9.7% (14-46) Monocytes (%) (Auto) 6.7% (4-12) Eosinophils (%) (Auto) 0% (0-5) Basophils (%) (Auto) 0.2% (0-3) Sodium Level 125mEq/L (134-144) Potassium Level 4.4mEq/L (3.5-5.2) Chloride Level 84mEq/L (97-108) Carbon Dioxide Level 12mmol/L (18-29) Blood Urea Nitrogen 10mg/dL (6-20) Creatinine 0.81mg/dL (0.76-1.27) Estimat Glomerular Filtration Rate 113mL/min (>59) Glucose Level 458mg/dL (60-99) Hemoglobin A1c 13.0% (4.8-5.6) Lactic Acid Level 2.0mmol/L (0.4-2.0) Calcium Level 6.1mg/dL (8.5-10.1) Magnesium Level 1.6mg/dL (1.6-2.6) 1.6mg/dL (1.6-2.6) Total Bilirubin 0.6mg/dL (0.0-1.2) Aspartate Amino Transf (AST/SGOT) < 5U/L (0-50) Alanine Aminotransferase (ALT/SGPT) < 5U/L (0-44) Alkaline Phosphatase 71U/L (25-150) Total Protein 7.1g/dL (6.4-8.4) Albumin 3.5g/dL (3.4-5.0) Lipase 941U/L (13-60) Hold Braden Top Tube Received (Received) Ketones Small (Negative) Urine Color Yellow (YELLOW) Urine Appearance Clear (CLEAR,HAZY) Urine pH 5.5 (5.0-8.0) Urine Specific [place] 1.015 (1.003-1.035) Urine Protein Tracemg/dL (NEG,TRACE) Urine Glucose (UA) >1000mg/dL (NEGATIVE) Urine Ketones >80mg/dL (NEGATIVE) Urine Occult Blood Trace (NEGATIVE) Urine Nitrite Negative (NEGATIVE) Urine Bilirubin Negative (NEGATIVE) Urine Urobilinogen Normalmg/dL (NORMAL) Urine Leukocyte Esterase Negative (NEGATIVE) Urine RBC 0-2/hpf (0-2) Urine WBC 0-5/hpf (0-5) Urine Epithelial Cells Few/hpf (NONE-MOD) Urine Crystals None seen (NONE SEEN) Urine Bacteria Few/hpf (NONE-FEW) Urine Hyaline Casts None/lpf (NONE) Urine Granular Casts None seen (NONE SEEN) Urine Waxy Casts None seen (NONE SEEN) Urine Red Blood Cell Casts None seen (NONE SEEN) Urine White Blood Cell Casts None seen (NONE SEEN) Urine Mucus None seen (None Seen) Urine Trichomonas None seen (NONE SEEN) Urine Yeast None (NONE SEEN) Urinalysis Comment None Urine Culture Reflexed Not indicated Triglycerides Level 379.2mg/dL (0-149) Osmolality 302 (275-300) Test 12/11/16 02:30 12/11/16 09:06 12/11/16 15:08 12/11/16 17:40 White Blood Count 9.8th/mm3 (3.8-10.1) Red Blood Count 5.12mil/mm3 (4.40-5.80) Hemoglobin 16.6g/dL (13.8-17.2) Hematocrit 46.2% (41.0-50.0) Mean Corpuscular Volume 90.2fL (81-100) Mean Corpuscular Hemoglobin 32.4pg (27.0-35.0) Mean Corpuscular Hemoglobin Concent 35.9% (32.0-37.0) Red Cell Distribution Width 12.7% (12.3-15.4) Platelet Count 194bil/L (150-400) Neutrophils (%) (Auto) 82.6% (40-74) Lymphocytes (%) (Auto) 10.2% (14-46) Monocytes (%) (Auto) 6.6% (4-12) Eosinophils (%) (Auto) 0% (0-5) Basophils (%) (Auto) 0.2% (0-3) Sodium Level 133mEq/L (134-144) 133mEq/L (134-144) 134mEq/L (134-144) 133mEq/L (134-144) Potassium Level 3.3mEq/L (3.5-5.2) 3.8mEq/L (3.5-5.2) 3.6mEq/L (3.5-5.2) 3.7mEq/L (3.5-5.2) Chloride Level 95mEq/L (97-108) 100mEq/L (97-108) 101mEq/L (97-108) 101mEq/L (97-108) Carbon Dioxide Level 14mmol/L (18-29) 19mmol/L (18-29) 19mmol/L (18-29) 19mmol/L (18-29) Blood Urea Nitrogen 10mg/dL (6-20) 9mg/dL (6-20) 9mg/dL (6-20) 9mg/dL (6-20) Creatinine 0.68mg/dL (0.76-1.27) 0.54mg/dL (0.76-1.27) 0.46mg/dL (0.76-1.27) 0.39mg/dL (0.76-1.27) Estimat Glomerular Filtration Rate 139mL/min (>59) 181mL/min (>59) 218mL/min (>59) 263mL/min (>59) Glucose Level 336mg/dL (60-99) 230mg/dL (60-99) 202mg/dL (60-99) 231mg/dL (60-99) Calcium Level 6.2mg/dL (8.5-10.1) 6.9mg/dL (8.5-10.1) 6.6mg/dL (8.5-10.1) 6.7mg/dL (8.5-10.1) Ionized Calcium 0.87mmol/L (1.17-1.32) Total Bilirubin 0.6mg/dL (0.0-1.2) Aspartate Amino Transf (AST/SGOT) 16U/L (0-50) Alanine Aminotransferase (ALT/SGPT) 14U/L (0-44) Alkaline Phosphatase 62U/L (25-150) Total Protein 6.2g/dL (6.4-8.4) Albumin 3.1g/dL (3.4-5.0) Magnesium Level 3.0mg/dL (1.6-2.6) Test 12/11/16 20:40 12/12/16 00:20 12/12/16 04:15 12/12/16 08:00 Sodium Level 133mEq/L (134-144) 136mEq/L (134-144) 135mEq/L (134-144) 137mEq/L (134-144) Potassium Level 3.5mEq/L (3.5-5.2) 3.6mEq/L (3.5-5.2) 3.6mEq/L (3.5-5.2) 3.3mEq/L (3.5-5.2) Chloride Level 100mEq/L (97-108) 102mEq/L (97-108) 103mEq/L (97-108) 104mEq/L (97-108) Carbon Dioxide Level 17mmol/L (18-29) 21mmol/L (18-29) 21mmol/L (18-29) 22mmol/L (18-29) Blood Urea Nitrogen 9mg/dL (6-20) 7mg/dL (6-20) 7mg/dL (6-20) 6mg/dL (6-20) Creatinine 0.42mg/dL (0.76-1.27) 0.43mg/dL (0.76-1.27) 0.35mg/dL (0.76-1.27) 0.38mg/dL (0.76-1.27) Estimat Glomerular Filtration Rate 242mL/min (>59) 235mL/min (>59) 299mL/min (>59) 271mL/min (>59) Glucose Level 267mg/dL (60-99) 222mg/dL (60-99) 238mg/dL (60-99) 217mg/dL (60-99) Calcium Level 6.6mg/dL (8.5-10.1) 6.5mg/dL (8.5-10.1) 6.7mg/dL (8.5-10.1) 6.6mg/dL (8.5-10.1) White Blood Count 6.9th/mm3 (3.8-10.1) Red Blood Count 4.34mil/mm3 (4.40-5.80) Hemoglobin 13.9g/dL (13.8-17.2) Hematocrit 40.0% (41.0-50.0) Mean Corpuscular Volume 92.2fL (81-100) Mean Corpuscular Hemoglobin 32.0pg (27.0-35.0) Mean Corpuscular Hemoglobin Concent 34.8% (32.0-37.0) Red Cell Distribution Width 12.7% (12.3-15.4) Platelet Count 156bil/L (150-400) Neutrophils (%) (Auto) 71.5% (40-74) Lymphocytes (%) (Auto) 16.6% (14-46) Monocytes (%) (Auto) 9.5% (4-12) Eosinophils (%) (Auto) 2.0% (0-5) Basophils (%) (Auto) 0.3% (0-3) Phosphorus Level 1.2mg/dL (2.5-4.9) Magnesium Level 2.3mg/dL (1.6-2.6) Albumin 2.4g/dL (3.4-5.0) Test 12/12/16 18:58 Sodium Level 138mEq/L (134-144) Potassium Level 3.6mEq/L (3.5-5.2) Chloride Level 102mEq/L (97-108) Carbon Dioxide Level 20mmol/L (18-29) Blood Urea Nitrogen 6mg/dL (6-20) Creatinine 0.37mg/dL (0.76-1.27) Estimat Glomerular Filtration Rate 280mL/min (>59) Glucose Level 202mg/dL (60-99) Calcium Level 7.0mg/dL (8.5-10.1) Phosphorus Level 1.4mg/dL (2.5-4.9) Result Diagram: 12/12/16 0415 12/12/16 1858 Microbiology Microbiology 12/11/16 MRSA (PCR) - negative X-Rays, CTs and MRIs CT Abd / Pelvis Interpretation 12/10/2016 CONCLUSION: Findings of moderately severe acute pancreatitis. Mild Ascites. Minimal left pleural effusion. No finding of necrotizing necrotizing identified. Transmitted to the ED at 22:38 by Sukh Babin M.D 12-lead ECG Sinus tachycardia with a rate of 120 Prolonged QT interval Assessment & Plan Pt is a 36-year-old male without any significant medical history presented with epigastric pain, admitted for pancreatitis and diabetes ketoacidosis. Diabetic ketoacidosis, present on admission, improving - Likely secondary to pancreatitis in the setting of undiagnosed diabetes type II - Initial anion gap at least 24.6, with ketones in the urine, and glucose of 458. Now improved with anion gap closing and glucose in the mid to upper 100's. - Patient received 2 L of bolus fluid, DKA protocol now discontinued. Currently on 100 ml/hr after discontinuing 50 mL D5NS as patient now advanced to clears. - Started on 40 units of Lantus with high dose correctional scale. Patient recieved 103 units of insulin over 12 hours on drip. - hgba1c 13 Acute pancreatitis, present on admission, active - has classic presentation abdominal pain with elevated lipase and CT-imaging to support - likely secondary to heavy EtOH abuse. BISAP score =1, low risk mortality. - "Pancreas rest", NPO for now. Can advance to clear liquids over night if patient is tolerating pain. - Hydromorphone IV prn, antinausea medication when necessary - Fluids as above Diabetes type II, present on admission, active - A1c 13 - Started Lantus 26 units qd with high dose correctional scale. - Diabetes education ordered Alcohol use disorder, present on admission, active - Supplement IV thiamine, start folate and vitamin B12 when patient can tolerate PO - CIWA protocol with withdrawal symptoms - Patient has PO librium PRN - Consult case management ordered Elevated blood pressure, present on admission, active - likely essential hypertension, probable obstructive sleep apnea - consider lisinopril once tolerate PO. - Will need sleep study outpatient Pseudohyponatremia, present on admission, active - Corrected sodium 136, normal - monitor Na Hypocalcemia, present on admission, active - replenished QT prolongation, present on admission, stable - QTc 525 - judicious use of ondansetron Morbid obesity, present on admission, stable - consulted dietitian. Will need weight lost strategies in addition to DM managements Anion gap metabolic acidosis, present on admission, resolved - Likely due to a combination of DKA and discontinuation alcohol ingestion - No secondary acid base disorder given Delta/delta =1 - Continue to monitor, hydrate as above Leukocytosis, present on admission, resolved - Likely reactive - Monitor High Risk medications: None DVT prophylaxis: Lovenox subcutaneous Disposition: Patient will likely require at least 2-3 more days of hospital stay , following advancing diets to full diet and stabilization of anion gap and blood glucose. Pain Evaluation: Adequate Pain Control VTE Prophylaxis: Sub-Q Enoxaparin Resuscitation Status: CPR: Attempt Resuscitation Attending Statement The patient was seen and examined together with Dr. Villarreal on 12/12/2016 and I agree with the history, exam and plan as outlined in the note above. . Sumeet Villarreal DO Dec 12, 2016 23:00 Yusuf Bonds MD Dec 13, 2016 07:03
[2016-12-12] MEDS ORDERED: HYDROmorphone 0.5 mg/0.5 mL iSecure Syringe IVPUSH PRN (23:30)
[2016-12-13] VITALS (8 sets, daily range): BP systolic 125–166; BP diastolic 71–109; PULSE 88–105; RESP 16–19; O2SAT 92–98
[2016-12-13 03:09] LABS: BASOPHILS % (AUTO) 0.4 % (0-3); EOSINOPHILS % (AUTO) 3.6 % (0-5); Mean Corpuscular Hemoglobin 32.1 pg (27.0-35.0); Mean Corpuscular Volume 94.6 fL (81-100); NEUTROPHILS % (AUTO) 65.7 % (40-74); Platelet Count 172 bil/L (150-400)
[2016-12-13] MEDS: HYDROmorphone 1 mg/mL Inj IVPUSH PRN ×3 (03:30→13:39)
--- NOTE | 2016-12-13 06:15 | NUR ---
Pain / Febrile / HTN / CIWA / Tele /Blood Glucose Pt c/o of abdomen and back pain about every 2 hours. Pt medicated with 2mg PO Dilaudid with no relief in pain. MD notified and new order to restart IV Dilaudid 0.5 mg every 4 hours. Pt still c/o abdomen pain every 2 hours. MD notified again and order changed to IV Dilaudid 0.5mg 1mg Q 4 hrs for pain. Pt then medicated with 1mg IV Dilaudid and Pt still requesting more pain meds, Pt then medicated with dose of Tylenol 325mg. Pt was febrile tonight with high Temp of 38.0 C, MD notified and new order for Tylenol 325mg PO and was administered, Temp reduced to 37.3 C. Pt Hypertensive tonight with BPs 137/83, 147/87 and 161/109, the last BP was taken just after Pt had just been up and walking in the room. CIWA scores tonight 2, 4, 2. No c/o chest pain, Tele SR-ST with HR 90-100s. Denies SOB, O2 @ 2L NC, SpO2 sats 94-97%. Blood sugars tonight were 179 at HS medicated with scheduled dose Lantus 26 units and AM blood glucose check was 156.
[2016-12-13] MEDS: Multivit-Miner-Folic Acid-Iron Tablet PO SCH (08:29)
[2016-12-13] MEDS: Insulin LISPRO 300 Unit/3 mL Inj SUBQ SCH ×4 (09:02→21:20)
[2016-12-13] MEDS ORDERED: Glucose 40% Oral Gel 15 Gm Tube PO PRN (09:50)
--- NOTE | 2016-12-13 10:26 | NUR ---
NUTRITION FOLLOW-UP: ASSESS: Pt is a 36yo M admitted to CCU for pancreatitis and new diagnosis of DM. Pt is also currently on CIWA protocol. He continues complain of abdomen and back pain. Diet was able to be advanced to CL 12/12. PO 100% x1 meal on CL. PMHX: no PMH LABS: Reviewed. Site Medical Director .32, Glu 186, Ca 7.0, lipase 165 MEDS: Reviewed. Thiamine, Zofran, insulin GI: 0 BM x3 days SKIN: no major issues CURRENT WTS: 139.4kg, BMI 45.4kg/m2, admit wt: 132.7kg, IBW: 72.7kg, adj BW: 87.7kg DIET: CL, PO 100%x1 meal EST. NEEDS: BMI Kcals: 2195-2630kcal/day (25-30kcal/kg adj bw) Pro: 105-130g/day (1.2-1.5g/kg adj bw) NUTRITION DIAGNOSIS: 1.) Altered nutrition related lab values related to endocrine dysfunction as evidence by new diagnosis of DM and A1C of 13.0--PERSISTS 2.) Inadequate oral intake related to decreased ability to consume sufficient energy as evidenced by current NPO status--PERSISTS NUTRITION INTERVENTION: 1.) DM diet education provided w/typer 12/11. Please see inpt dm diet ed under care activity for further information regarding education. Also discussed during DM diet ed how following this diet will help pt in wt loss. Pt and were trying to lose wt prior to admit by drinking apple cider vinegar. 2.) On 12/11 RD discussed how drinking large amounts of alcohol can fill you up and make you not hungry for food which can lead to many health issues including malnutrition. Pt verbalized importance of eating regular meals/portions and avoiding alcohol. Understands need to make change in diet/lifestyle. 3.) Continue to advance diet when medically appropriate. MONITOR / EVAL: PO/diet advc, wt, gi, labs, POC, nutrition status. Will continue to monitor per high nutrition risk guidelines
--- NOTE | 2016-12-13 10:49 | NUR ---
Called an arranged establishment appointment with [facility], this is on January check in at 1PM for a 130PM appointment with . Updated [employer] OPERATOR
[2016-12-13] MEDS: 0.9% Sodium Chloride 1,000 ML IV SCH ×2 (11:42→21:20)
[2016-12-13] MEDS: Polyethylene Glycol (PEG) 17 Gm Powder PO PRN (13:39)
--- NOTE | 2016-12-13 18:04 | NUR ---
Activity/Blood Glucose/Diet/Abdominal pain/Constipation/Diarrhea: Patient was able to ambulate 200 feet in halls with SBA this morning and is now ambulating in room Ind. Strong/steady gait noted. Blood sugars have continued to be elevated. B = 193, L =214 and D = 194. MD Aware. Medium dose Humalog Algorithm in place. Pt requesting to advance diet from clear liquids to solids, but patient continues to have 1-5/10 abdominal pain throughout shift. Pt educated on pancreatitis and verbalizes understanding. Pain treated with Tylenol 325mg X2, Dilaudid 1mg IVP x1, Dilaudid 0.5mg IVP X1 and Dilaudid 1mg PO X1. c/o constipation this morning, Miralax PO given. Patient now reports diarrhea X2.
--- NOTE | 2016-12-13 18:26 | PCM.PNMED ---
Subjective Date of Service Dec 13, 2016 Subjective Overnight Events. Patient complaining of back pain every 2 hours over night. PO dilaudid not very helpful so switched back to IV dilaudid. Patient also Afebrile to 38 degrees celsius, tylenol given. He is resting in bed comfortably and in no acute distress. The patient reports feeling better than the day prior. His abdomen became painful yesterday evening after starting clear fluids. He is still having some sweating, but no anxiety. He feels constipated, but denies headache, dizziness, sore throat, cough, chest pain, shortness of breath, vomiting, and diarrhea. Exam Vital Signs Vital Sign - Last Date Time Temp Pulse Resp B/P Pulse Ox O2 Delivery O2 Flow Rate FiO2 12/13/16 05:23 101 12/13/16 03:34 37.3 19 161/109 97 Nasal Cannula 2.00 Intake and Output 12/12/16 12/12/16 12/13/16 Cumulative From/Thru 15:00 23:00 07:00 12/10/16 18:10 - 12/13/16 06:08 Intake Total 1468 ml 2144 ml 77039 ml Output Total 750 ml 1550 ml 4710 ml Balance 718 ml 594 ml 9684 ml Intake Oral 0 ml 1000 ml 1100 ml IV Total 1468 ml 1144 ml 55660 ml Output Urine Total 750 ml 1550 ml 4710 ml # Voids 7 8 # Bowel Movements 0 Exam General: No acute distress, well-developed, well-nourished, appropriately interactive, morbidly obese HEENT: Normocephalic, atraumatic. Anicteric sclerae, moist conjunctivae Cardiovascular: Regular rate and rhythm with no murmurs, rubs, or gallops appreciated Pulmonary: Clear to auscultation bilaterally with no crackles, wheezes, or rhonchi. Normal respiratory effort with no use of accessory muscles. Abdomen: Bowel tones present. Soft, periumbilical tenderness improved from prior days , nondistended. No hepatosplenomegaly or masses appreciated. Extremities: No clubbing, cyanosis, edema Skin: Normal temperature, dry, cracking skin Neurological: Cranial nerves grossly intact. Normal muscle strength, tone, and bulk. Psychiatric: Normal mood and affect. Alert and oriented to person, place, and time. Lab and Diagnostics Laboratory Tests 72 Hours Test 12/10/16 18:40 12/10/16 20:37 12/10/16 23:27 12/11/16 00:00 White Blood Count 12.0th/mm3 (3.8-10.1) Red Blood Count 5.43mil/mm3 (4.40-5.80) Hemoglobin 17.5g/dL (13.8-17.2) Hematocrit 48.7% (41.0-50.0) Mean Corpuscular Volume 89.7fL (81-100) Mean Corpuscular Hemoglobin 32.2pg (27.0-35.0) Mean Corpuscular Hemoglobin Concent 35.9% (32.0-37.0) Red Cell Distribution Width 12.7% (12.3-15.4) Platelet Count 203bil/L (150-400) Neutrophils (%) (Auto) 83.1% (40-74) Lymphocytes (%) (Auto) 9.7% (14-46) Monocytes (%) (Auto) 6.7% (4-12) Eosinophils (%) (Auto) 0% (0-5) Basophils (%) (Auto) 0.2% (0-3) Sodium Level 125mEq/L (134-144) Potassium Level 4.4mEq/L (3.5-5.2) Chloride Level 84mEq/L (97-108) Carbon Dioxide Level 12mmol/L (18-29) Blood Urea Nitrogen 10mg/dL (6-20) Creatinine 0.81mg/dL (0.76-1.27) Estimat Glomerular Filtration Rate 113mL/min (>59) Glucose Level 458mg/dL (60-99) Hemoglobin A1c 13.0% (4.8-5.6) Lactic Acid Level 2.0mmol/L (0.4-2.0) Calcium Level 6.1mg/dL (8.5-10.1) Magnesium Level 1.6mg/dL (1.6-2.6) 1.6mg/dL (1.6-2.6) Total Bilirubin 0.6mg/dL (0.0-1.2) Aspartate Amino Transf (AST/SGOT) < 5U/L (0-50) Alanine Aminotransferase (ALT/SGPT) < 5U/L (0-44) Alkaline Phosphatase 71U/L (25-150) Total Protein 7.1g/dL (6.4-8.4) Albumin 3.5g/dL (3.4-5.0) Lipase 941U/L (13-60) Hold Braden Top Tube Received (Received) Ketones Small (Negative) Urine Color Yellow (YELLOW) Urine Appearance Clear (CLEAR,HAZY) Urine pH 5.5 (5.0-8.0) Urine Specific [place] 1.015 (1.003-1.035) Urine Protein Tracemg/dL (NEG,TRACE) Urine Glucose (UA) >1000mg/dL (NEGATIVE) Urine Ketones >80mg/dL (NEGATIVE) Urine Occult Blood Trace (NEGATIVE) Urine Nitrite Negative (NEGATIVE) Urine Bilirubin Negative (NEGATIVE) Urine Urobilinogen Normalmg/dL (NORMAL) Urine Leukocyte Esterase Negative (NEGATIVE) Urine RBC 0-2/hpf (0-2) Urine WBC 0-5/hpf (0-5) Urine Epithelial Cells Few/hpf (NONE-MOD) Urine Crystals None seen (NONE SEEN) Urine Bacteria Few/hpf (NONE-FEW) Urine Hyaline Casts None/lpf (NONE) Urine Granular Casts None seen (NONE SEEN) Urine Waxy Casts None seen (NONE SEEN) Urine Red Blood Cell Casts None seen (NONE SEEN) Urine White Blood Cell Casts None seen (NONE SEEN) Urine Mucus None seen (None Seen) Urine Trichomonas None seen (NONE SEEN) Urine Yeast None (NONE SEEN) Urinalysis Comment None Urine Culture Reflexed Not indicated Triglycerides Level 379.2mg/dL (0-149) Osmolality 302 (275-300) Test 12/11/16 02:30 12/11/16 09:06 12/11/16 15:08 12/11/16 17:40 White Blood Count 9.8th/mm3 (3.8-10.1) Red Blood Count 5.12mil/mm3 (4.40-5.80) Hemoglobin 16.6g/dL (13.8-17.2) Hematocrit 46.2% (41.0-50.0) Mean Corpuscular Volume 90.2fL (81-100) Mean Corpuscular Hemoglobin 32.4pg (27.0-35.0) Mean Corpuscular Hemoglobin Concent 35.9% (32.0-37.0) Red Cell Distribution Width 12.7% (12.3-15.4) Platelet Count 194bil/L (150-400) Neutrophils (%) (Auto) 82.6% (40-74) Lymphocytes (%) (Auto) 10.2% (14-46) Monocytes (%) (Auto) 6.6% (4-12) Eosinophils (%) (Auto) 0% (0-5) Basophils (%) (Auto) 0.2% (0-3) Sodium Level 133mEq/L (134-144) 133mEq/L (134-144) 134mEq/L (134-144) 133mEq/L (134-144) Potassium Level 3.3mEq/L (3.5-5.2) 3.8mEq/L (3.5-5.2) 3.6mEq/L (3.5-5.2) 3.7mEq/L (3.5-5.2) Chloride Level 95mEq/L (97-108) 100mEq/L (97-108) 101mEq/L (97-108) 101mEq/L (97-108) Carbon Dioxide Level 14mmol/L (18-29) 19mmol/L (18-29) 19mmol/L (18-29) 19mmol/L (18-29) Blood Urea Nitrogen 10mg/dL (6-20) 9mg/dL (6-20) 9mg/dL (6-20) 9mg/dL (6-20) Creatinine 0.68mg/dL (0.76-1.27) 0.54mg/dL (0.76-1.27) 0.46mg/dL (0.76-1.27) 0.39mg/dL (0.76-1.27) Estimat Glomerular Filtration Rate 139mL/min (>59) 181mL/min (>59) 218mL/min (>59) 263mL/min (>59) Glucose Level 336mg/dL (60-99) 230mg/dL (60-99) 202mg/dL (60-99) 231mg/dL (60-99) Calcium Level 6.2mg/dL (8.5-10.1) 6.9mg/dL (8.5-10.1) 6.6mg/dL (8.5-10.1) 6.7mg/dL (8.5-10.1) Ionized Calcium 0.87mmol/L (1.17-1.32) Total Bilirubin 0.6mg/dL (0.0-1.2) Aspartate Amino Transf (AST/SGOT) 16U/L (0-50) Alanine Aminotransferase (ALT/SGPT) 14U/L (0-44) Alkaline Phosphatase 62U/L (25-150) Total Protein 6.2g/dL (6.4-8.4) Albumin 3.1g/dL (3.4-5.0) Magnesium Level 3.0mg/dL (1.6-2.6) Test 12/11/16 20:40 12/12/16 00:20 12/12/16 04:15 12/12/16 08:00 Sodium Level 133mEq/L (134-144) 136mEq/L (134-144) 135mEq/L (134-144) 137mEq/L (134-144) Potassium Level 3.5mEq/L (3.5-5.2) 3.6mEq/L (3.5-5.2) 3.6mEq/L (3.5-5.2) 3.3mEq/L (3.5-5.2) Chloride Level 100mEq/L (97-108) 102mEq/L (97-108) 103mEq/L (97-108) 104mEq/L (97-108) Carbon Dioxide Level 17mmol/L (18-29) 21mmol/L (18-29) 21mmol/L (18-29) 22mmol/L (18-29) Blood Urea Nitrogen 9mg/dL (6-20) 7mg/dL (6-20) 7mg/dL (6-20) 6mg/dL (6-20) Creatinine 0.42mg/dL (0.76-1.27) 0.43mg/dL (0.76-1.27) 0.35mg/dL (0.76-1.27) 0.38mg/dL (0.76-1.27) Estimat Glomerular Filtration Rate 242mL/min (>59) 235mL/min (>59) 299mL/min (>59) 271mL/min (>59) Glucose Level 267mg/dL (60-99) 222mg/dL (60-99) 238mg/dL (60-99) 217mg/dL (60-99) Calcium Level 6.6mg/dL (8.5-10.1) 6.5mg/dL (8.5-10.1) 6.7mg/dL (8.5-10.1) 6.6mg/dL (8.5-10.1) White Blood Count 6.9th/mm3 (3.8-10.1) Red Blood Count 4.34mil/mm3 (4.40-5.80) Hemoglobin 13.9g/dL (13.8-17.2) Hematocrit 40.0% (41.0-50.0) Mean Corpuscular Volume 92.2fL (81-100) Mean Corpuscular Hemoglobin 32.0pg (27.0-35.0) Mean Corpuscular Hemoglobin Concent 34.8% (32.0-37.0) Red Cell Distribution Width 12.7% (12.3-15.4) Platelet Count 156bil/L (150-400) Neutrophils (%) (Auto) 71.5% (40-74) Lymphocytes (%) (Auto) 16.6% (14-46) Monocytes (%) (Auto) 9.5% (4-12) Eosinophils (%) (Auto) 2.0% (0-5) Basophils (%) (Auto) 0.3% (0-3) Phosphorus Level 1.2mg/dL (2.5-4.9) Magnesium Level 2.3mg/dL (1.6-2.6) Albumin 2.4g/dL (3.4-5.0) Test 12/12/16 18:58 12/13/16 02:30 Sodium Level 138mEq/L (134-144) 134mEq/L (134-144) Potassium Level 3.6mEq/L (3.5-5.2) 3.7mEq/L (3.5-5.2) Chloride Level 102mEq/L (97-108) 98mEq/L (97-108) Carbon Dioxide Level 20mmol/L (18-29) 21mmol/L (18-29) Blood Urea Nitrogen 6mg/dL (6-20) 6mg/dL (6-20) Creatinine 0.37mg/dL (0.76-1.27) 0.32mg/dL (0.76-1.27) Estimat Glomerular Filtration Rate 280mL/min (>59) 331mL/min (>59) Glucose Level 202mg/dL (60-99) 186mg/dL (60-99) Calcium Level 7.0mg/dL (8.5-10.1) 7.0mg/dL (8.5-10.1) Phosphorus Level 1.4mg/dL (2.5-4.9) White Blood Count 7.7th/mm3 (3.8-10.1) Red Blood Count 4.11mil/mm3 (4.40-5.80) Hemoglobin 13.2g/dL (13.8-17.2) Hematocrit 38.9% (41.0-50.0) Mean Corpuscular Volume 94.6fL (81-100) Mean Corpuscular Hemoglobin 32.1pg (27.0-35.0) Mean Corpuscular Hemoglobin Concent 33.9% (32.0-37.0) Red Cell Distribution Width 13.1% (12.3-15.4) Platelet Count 172bil/L (150-400) Neutrophils (%) (Auto) 65.7% (40-74) Lymphocytes (%) (Auto) 18.9% (14-46) Monocytes (%) (Auto) 11.0% (4-12) Eosinophils (%) (Auto) 3.6% (0-5) Basophils (%) (Auto) 0.4% (0-3) Lipase 165U/L (13-60) Result Diagram: 12/13/16 0230 12/13/16 0230 Microbiology Microbiology 12/11/16 MRSA (PCR) - negative X-Rays, CTs and MRIs CT Abd / Pelvis Interpretation 12/10/2016 CONCLUSION: Findings of moderately severe acute pancreatitis. Mild Ascites. Minimal left pleural effusion. No finding of necrotizing necrotizing identified. Transmitted to the ED at 22:38 by Sukh Babin M.D 12-lead ECG Sinus tachycardia with a rate of 120 Prolonged QT interval Assessment & Plan Pt is a 36-year-old male without any significant medical history presented with epigastric pain, admitted for pancreatitis and diabetes ketoacidosis. Diabetic ketoacidosis, present on admission, improving - Likely secondary to pancreatitis in the setting of undiagnosed diabetes type II - Initial anion gap at least 24.6, with ketones in the urine, and glucose of 458. Starting 12/12 afternoon, improved with anion gap closing and glucose in the mid to upper 100's. Has remained below 200 since. - Patient received 2 L of bolus fluid, DKA protocol now discontinued. Currently on 100 ml/hr with clear fluid diet. - Lantus increased from 26 units at night to 35 units with high dose nutritional scale. - hgba1c 13 Acute pancreatitis, present on admission, active - has classic presentation abdominal pain with elevated lipase and CT-imaging to support - likely secondary to heavy EtOH abuse. BISAP score =1, low risk mortality. - Patient on clear fluids started 12/12 evening, had rebound abdominal pain following dinner. Will continue clear fluids today. - Hydromorphone IV prn, antinausea medication when necessary - Fluids as above Diabetes type II, present on admission, active - A1c 13 - As above switched from 26 units lantus to 35 units night with high dose correctional scale. - Diabetes education ordered Protein malnutrition, active Secondary to long-term alcohol use. Albumin 2.4 Has been evaluated by drafter construction with recommendations Alcohol use disorder, present on admission, active - Supplement IV thiamine, start folate and vitamin B12 when patient can tolerate PO - CIWA protocol with withdrawal symptoms - Patient has PO librium PRN - Consult case management ordered Elevated blood pressure, present on admission, active - likely essential hypertension, probable obstructive sleep apnea - consider lisinopril once tolerate PO. - Will need sleep study outpatient Pseudohyponatremia, present on admission, active - Corrected sodium 136, normal - monitor Na Hypocalcemia, present on admission, active - replenished QT prolongation, present on admission, stable - QTc 525 - judicious use of ondansetron Morbid obesity, present on admission, stable - consulted dietitian. Will need weight lost strategies in addition to DM managements Anion gap metabolic acidosis, present on admission, resolved - Likely due to a combination of DKA and discontinuation alcohol ingestion - No secondary acid base disorder given Delta/delta =1 - Continue to monitor, hydrate as above Leukocytosis, present on admission, resolved - Likely reactive - Monitor High Risk medications: None DVT prophylaxis: Lovenox subcutaneous Disposition: Patient will likely require at least 2-3 more days of hospital stay , following advancing diets to full diet and stabilization of anion gap and blood glucose. VTE Prophylaxis: Sub-Q Enoxaparin Resuscitation Status: CPR: Attempt Resuscitation Time spent 25 minutes Attending Statement Patient was seen and examined at bedside in addition I directly supervised provided by Resident physician, Dr. Villarreal. I agree with above documentation. Patient will have diet advanced and pain medications weened as tolerated. Blood sugars stabilizing/improved, will continue to discuss implications of diabetes and dietary changes. Sumeet Villarreal DO Dec 13, 2016 06:26 Rafael Padilla DO Dec 14, 2016 14:11
[2016-12-13] MEDS ORDERED: Potassium Phos (mEq) Inj 40 MEQ in Dextrose 5% 500 ML IV ONE (19:20)
[2016-12-13] MEDS ORDERED: KCl 40 mEq/D5W 500 mL 40 MEQ in IV Premix 1 EACH IV ONE (19:25)
[2016-12-13] MEDS ORDERED: Insulin GLARgine 100 Unit/mL Syringe SUBQ SCH ×2 (21:00)
[2016-12-13] MEDS: Thiamine Inj 200 MG in Dextrose 5% 50 ML IV SCH (21:15)
[2016-12-14] MEDS: chlordiazePOXIDE 25 mg Capsule PO PRN (00:46)
[2016-12-14 00:54] VITALS: PULSE 94; O2SAT 97
[2016-12-14 02:51] VITALS: BP 164/94; PULSE 98; RESP 16; O2SAT 99
[2016-12-14] MEDS: 0.9% Sodium Chloride 1,000 ML IV SCH (03:15)
[2016-12-14 03:55] LABS: Phosphorus 2.2 mg/dL (2.5-4.9)
--- NOTE | 2016-12-14 06:49 | NUR ---
Resp / HTN/ CIWA / Pain / Glucose Pt desat down into the low 80s while sleeping on room. Pt placed on O2 @ 2L NC, SpO2 sats 97-99%. BPs have been hypertensive tonight with SBPs in the 159-164s. Denies headache, dizziness or visual problems. CIWA scores tonight were 4,7,4. Pt c/o abdomen and back pain. Pt medicated about every 4 hours with 2mg PO Dilaudid alternating with 325mg PO Tylenol with mild relief of pain, Pt given ice pack for comfort. notified about Pts c/o Back pain this AM, and K-Pad ordered for comfort. Blood sugars overnight were 212 and 202.
[2016-12-14 07:31] VITALS: BP 145/89; PULSE 94; RESP 18; O2SAT 98
[2016-12-14] MEDS: Multivit-Miner-Folic Acid-Iron Tablet PO SCH (08:21)
[2016-12-14] MEDS: Insulin LISPRO 300 Unit/3 mL Inj SUBQ SCH ×4 (08:29→22:11)
[2016-12-14] MEDS ORDERED: oxyCODONE-Acetamin 5-325 mg Tablet PO PRN (08:50)
[2016-12-14] MEDS ORDERED: Potassium Phos (mMol) Inj 30 MMOL in Dextrose 5% 500 ML IV ONE (09:50)
--- NOTE | 2016-12-14 13:43 | NUR ---
Status Patient progressing towards planned outcomes. Tolerating full liquid diet. Denies nausea. Minimal complaints of abdominal and back pain this shift, rating 2/10. PRN po dilaudid administered early this AM, pt has denied need for additional pain medication. VSS. Desaturated on room air at sleep yesterday evening, 1 to 2L worn overnight at rest to maintain saturation > 92%. Room air while awake. Blood glucose elevated in >200 mid-shift, SSI administered. Will continue to monitor.
[2016-12-14] MEDS: Polyethylene Glycol (PEG) 17 Gm Powder PO PRN (14:53)
[2016-12-14 15:24] VITALS: BP 150/91; PULSE 99; RESP 16; O2SAT 94
--- NOTE | 2016-12-14 17:18 | PCM.PNMED ---
Subjective Date of Service Dec 14, 2016 Subjective Overnight Events. Patient continued to have a lot of back pain over night and requiring 2 mg dilaudid PO frequently. He also desat into 80's while sleeping, required 2L O2 overnight. He is resting in bed comfortably and in no acute distress. The patient reports feeling better than the day prior. He has been tolerating clear fluids very well with minimal abdominal pain, no vomiting or nausea. His back pain that he' s been having, he attributes it to being in bed all day. I encouraged him to get out of bed as much as he can and walk frequently around the halls, which he was receptive to. He is still having some sweating, but no anxiety. He feels constipated, but denies headache, dizziness, sore throat, cough, chest pain, shortness of breath, vomiting, and diarrhea. Exam Vital Signs Vital Sign - Last Date Time Temp Pulse Resp B/P Pulse Ox O2 Delivery O2 Flow Rate FiO2 12/14/16 02:51 38.0 98 16 164/94 99 Nasal Cannula 2.00 Intake and Output 12/13/16 12/13/16 12/14/16 Cumulative From/Thru 15:00 23:00 07:00 12/10/16 18:10 - 12/14/16 05:23 Intake Total 3604 ml 2487 ml 56867 ml Output Total 1925 ml 1850 ml 8485 ml Balance 1679 ml 637 ml 81255 ml Intake Oral 2254 ml 840 ml 4194 ml IV Total 1350 ml 1647 ml 00513 ml Output Urine Total 1925 ml 1850 ml 8485 ml # Voids 8 # Bowel Movements 3 3 Exam General: No acute distress, well-developed, well-nourished, appropriately interactive, morbidly obese, HEENT: Normocephalic, atraumatic. Anicteric sclerae, moist conjunctivae Cardiovascular: Regular rate and rhythm with no murmurs, rubs, or gallops appreciated Pulmonary: Clear to auscultation bilaterally with no crackles, wheezes, or rhonchi. Normal respiratory effort with no use of accessory muscles. Abdomen: Bowel tones present. Soft, nontender, nondistended. Extremities: No clubbing, cyanosis, edema Skin: Normal temperature, dry, cracking skin Neurological: Cranial nerves grossly intact. Normal muscle strength, tone, and bulk. Psychiatric: Normal mood and affect. Alert and oriented to person, place, and time. Lab and Diagnostics Laboratory Tests 72 Hours Test 12/11/16 15:08 12/11/16 17:40 12/11/16 20:40 12/12/16 00:20 Sodium Level 134mEq/L (134-144) 133mEq/L (134-144) 133mEq/L (134-144) 136mEq/L (134-144) Potassium Level 3.6mEq/L (3.5-5.2) 3.7mEq/L (3.5-5.2) 3.5mEq/L (3.5-5.2) 3.6mEq/L (3.5-5.2) Chloride Level 101mEq/L (97-108) 101mEq/L (97-108) 100mEq/L (97-108) 102mEq/L (97-108) Carbon Dioxide Level 19mmol/L (18-29) 19mmol/L (18-29) 17mmol/L (18-29) 21mmol/L (18-29) Blood Urea Nitrogen 9mg/dL (6-20) 9mg/dL (6-20) 9mg/dL (6-20) 7mg/dL (6-20) Creatinine 0.46mg/dL (0.76-1.27) 0.39mg/dL (0.76-1.27) 0.42mg/dL (0.76-1.27) 0.43mg/dL (0.76-1.27) Estimat Glomerular Filtration Rate 218mL/min (>59) 263mL/min (>59) 242mL/min (>59) 235mL/min (>59) Glucose Level 202mg/dL (60-99) 231mg/dL (60-99) 267mg/dL (60-99) 222mg/dL (60-99) Calcium Level 6.6mg/dL (8.5-10.1) 6.7mg/dL (8.5-10.1) 6.6mg/dL (8.5-10.1) 6.5mg/dL (8.5-10.1) Test 12/12/16 04:15 12/12/16 08:00 12/12/16 18:58 12/13/16 02:30 White Blood Count 6.9th/mm3 (3.8-10.1) 7.7th/mm3 (3.8-10.1) Red Blood Count 4.34mil/mm3 (4.40-5.80) 4.11mil/mm3 (4.40-5.80) Hemoglobin 13.9g/dL (13.8-17.2) 13.2g/dL (13.8-17.2) Hematocrit 40.0% (41.0-50.0) 38.9% (41.0-50.0) Mean Corpuscular Volume 92.2fL (81-100) 94.6fL (81-100) Mean Corpuscular Hemoglobin 32.0pg (27.0-35.0) 32.1pg (27.0-35.0) Mean Corpuscular Hemoglobin Concent 34.8% (32.0-37.0) 33.9% (32.0-37.0) Red Cell Distribution Width 12.7% (12.3-15.4) 13.1% (12.3-15.4) Platelet Count 156bil/L (150-400) 172bil/L (150-400) Neutrophils (%) (Auto) 71.5% (40-74) 65.7% (40-74) Lymphocytes (%) (Auto) 16.6% (14-46) 18.9% (14-46) Monocytes (%) (Auto) 9.5% (4-12) 11.0% (4-12) Eosinophils (%) (Auto) 2.0% (0-5) 3.6% (0-5) Basophils (%) (Auto) 0.3% (0-3) 0.4% (0-3) Sodium Level 135mEq/L (134-144) 137mEq/L (134-144) 138mEq/L (134-144) 134mEq/L (134-144) Potassium Level 3.6mEq/L (3.5-5.2) 3.3mEq/L (3.5-5.2) 3.6mEq/L (3.5-5.2) 3.7mEq/L (3.5-5.2) Chloride Level 103mEq/L (97-108) 104mEq/L (97-108) 102mEq/L (97-108) 98mEq/L (97-108) Carbon Dioxide Level 21mmol/L (18-29) 22mmol/L (18-29) 20mmol/L (18-29) 21mmol/L (18-29) Blood Urea Nitrogen 7mg/dL (6-20) 6mg/dL (6-20) 6mg/dL (6-20) 6mg/dL (6-20) Creatinine 0.35mg/dL (0.76-1.27) 0.38mg/dL (0.76-1.27) 0.37mg/dL (0.76-1.27) 0.32mg/dL (0.76-1.27) Estimat Glomerular Filtration Rate 299mL/min (>59) 271mL/min (>59) 280mL/min (>59) 331mL/min (>59) Glucose Level 238mg/dL (60-99) 217mg/dL (60-99) 202mg/dL (60-99) 186mg/dL (60-99) Calcium Level 6.7mg/dL (8.5-10.1) 6.6mg/dL (8.5-10.1) 7.0mg/dL (8.5-10.1) 7.0mg/dL (8.5-10.1) Phosphorus Level 1.2mg/dL (2.5-4.9) 1.4mg/dL (2.5-4.9) Magnesium Level 2.3mg/dL (1.6-2.6) Albumin 2.4g/dL (3.4-5.0) Lipase 165U/L (13-60) Test 12/14/16 02:45 12/14/16 07:22 Sodium Level 133mEq/L (134-144) 133mEq/L (134-144) Potassium Level 3.3mEq/L (3.5-5.2) 3.1mEq/L (3.5-5.2) Chloride Level 94mEq/L (97-108) 94mEq/L (97-108) Carbon Dioxide Level 22mmol/L (18-29) 20mmol/L (18-29) Blood Urea Nitrogen 4mg/dL (6-20) 4mg/dL (6-20) Creatinine 0.30mg/dL (0.76-1.27) < 0.30mg/dL (0.76-1.27) Estimat Glomerular Filtration Rate 357mL/min (>59) 357mL/min (>59) Glucose Level 192mg/dL (60-99) 195mg/dL (60-99) Calcium Level 7.7mg/dL (8.5-10.1) 7.7mg/dL (8.5-10.1) Phosphorus Level 2.2mg/dL (2.5-4.9) 2.0mg/dL (2.5-4.9) Result Diagram: 12/13/16 0230 12/14/16 0245 Microbiology Microbiology 12/11/16 MRSA (PCR) - negative X-Rays, CTs and MRIs CT Abd / Pelvis Interpretation 12/10/2016 CONCLUSION: Findings of moderately severe acute pancreatitis. Mild Ascites. Minimal left pleural effusion. No finding of necrotizing necrotizing identified. Transmitted to the ED at 22:38 by Sukh Babin M.D 12-lead ECG Sinus tachycardia with a rate of 120 Prolonged QT interval Assessment & Plan Pt is a 36-year-old male without any significant medical history presented with epigastric pain, admitted for pancreatitis and diabetes ketoacidosis. Diabetic ketoacidosis, present on admission, resolved - Likely secondary to pancreatitis in the setting of undiagnosed diabetes type II - Initial anion gap at least 24.6, with ketones in the urine, and glucose of 458. Starting 12/12 afternoon, improved with anion gap closing and glucose in the mid to upper 100's. Has remained below 200 since. - - Patient received 2 L of bolus fluid, DKA protocol now discontinued. discontinued his 100 mL NS. Blood sugars in the mid 100's AM of 12/14/16. - Lantus at night to 35 units with high dose nutritional scale. - hgba1c 13 Acute pancreatitis, present on admission, improving - has classic presentation abdominal pain with elevated lipase and CT-imaging to support - likely secondary to heavy EtOH abuse. BISAP score =1, low risk mortality. - Patient on clear fluids started 12/12 evening, continued clear fluids till morning of 12/14/16 and now advanced to full liquid diet. Will consider starting diabetic diet in the evening per patient tolerance. - Switched PO dilaudid to 1-2 tablets of oxycodone 5-325 q4 hours for pain PRN - Fluids discontinued Diabetes type II, present on admission, active - A1c 13 - Lantus 35 units night with high dose correctional scale. - Diabetes education done Protein malnutrition, active Secondary to intermediate alcohol use. Albumin 2.4 Has been evaluated by tailor fitter with recommendations Alcohol use disorder, present on admission, active - Supplement IV thiamine, start folate and vitamin B12 when patient can tolerate PO - CIWA protocol with withdrawal symptoms - Patient has PO librium PRN - Consult case management ordered Elevated blood pressure, present on admission, active - likely essential hypertension, probable obstructive sleep apnea - Start Lisinopril 10 mg PO daily - Will need sleep study outpatient Pseudohyponatremia, present on admission, resolved - Corrected sodium 136, normal - monitor Na Hypocalcemia, present on admission, active - replenished QT prolongation, present on admission, stable - QTc 525 - judicious use of ondansetron Morbid obesity, present on admission, stable - consulted dietitian. Will need weight lost strategies in addition to DM managements Anion gap metabolic acidosis, present on admission, resolved - Likely due to a combination of DKA and discontinuation alcohol ingestion - No secondary acid base disorder given Delta/delta =1 - Continue to monitor, hydrate as above Leukocytosis, present on admission, resolved - Likely reactive - Monitor High Risk medications: None DVT prophylaxis: Lovenox subcutaneous Disposition: Patient will likely require at least 2-3 more days of hospital stay , following advancing diets to full diet and stabilization of anion gap and blood glucose. VTE Prophylaxis: Sub-Q Enoxaparin Resuscitation Status: CPR: Attempt Resuscitation Time spent 25 minutes Attending Statement I have seen and evaluated patient at bedside in addition to directly supervising care provided by resident physician. I agree with above documentation from 12/14/2016 by yan Villarreal. Sumeet Villarreal DO Dec 14, 2016 06:52 Rafael Padilla DO Dec 15, 2016 16:42
[2016-12-14] MEDS ORDERED: Potassium Chloride 20 mEq SR Tablet PO ONE (18:30)
[2016-12-14] MEDS ORDERED: Insulin GLARgine 100 Unit/mL Syringe SUBQ SCH (21:00)
[2016-12-14 21:46] VITALS: BP 134/92; PULSE 108; RESP 24; O2SAT 96
[2016-12-14] MEDS: Thiamine Inj 200 MG in Dextrose 5% 50 ML IV SCH (22:01)
[2016-12-15 03:16] VITALS: BP 131/88; PULSE 110; RESP 22; O2SAT 97
[2016-12-15] MEDS: chlordiazePOXIDE 25 mg Capsule PO PRN (03:41)
[2016-12-15] MEDS ORDERED: Potassium Chloride Oral 20 mEq SR Tab(K 3 - 3.7 & Creat < 2) PO ONE (06:40)
--- NOTE | 2016-12-15 06:40 | NUR ---
O2/CIWA/Pain Pt sats maintaining mid 90s on RA but desat to high 80s while asleep, placed on 2L NC and sats maintained above 92% after that, monitored on [employer] WORK [employer]. CIWAs below 10 w/ some restlessness and sweating, later in shift pt ambulated the a celis a short time before returning to bed. Pulse noted to be in 90s at rest but in 110s while pt up using urinal or coming back from BR. Abdominal pain rated at 1/10 overnight, pt stated this was tolerable, no other complaints.
[2016-12-15 08:25] VITALS: BP 134/85; PULSE 103; RESP 18; O2SAT 95
[2016-12-15] MEDS: Multivit-Miner-Folic Acid-Iron Tablet PO SCH (08:44)
[2016-12-15] MEDS: Insulin LISPRO 300 Unit/3 mL Inj SUBQ SCH ×2 (08:45→13:05)
[2016-12-15] MEDS ORDERED: OXYC1TAB24 PO (11:55)
[2016-12-15] MEDS ORDERED: METF850T2 PO (11:55)
[2016-12-15] MEDS ORDERED: LISI-610 PO (11:55)
--- NOTE | 2016-12-15 12:00 | PCM.DIMED ---
Discharge Instructions Date of Service Dec 15, 2016 Dates of Hospitalization Dec 10, 2016 at 23:21 Discharge Diagnosis Discharge Diagnosis 1. Acute pancreatitis 2. Diabetes Mellitus type 2 Diet Discharge Diet: Diabetic, Other (Low sugar, low cardbohydrate. ) Activity Discharge Activity: No restrictions Call your provider Call your provider for: Fever or Chills, Shortness of breath Patient Instructions Patient Instructions You have been started on 2 new medications; 1. Metformin 850mg by mouth, 2 times per day. This medication will help keep your blood sugar stable. It can cause diarrhea. This is normal and usually resolved in the first few weeks. 2. Lisinopril 10mg by mouth every day. This medication helps protect your kidneys and controls blood pressure. please check your blood sugars 2 times per day with blood sugar testing kit ( prescription will be provided). You should check blood sugar once in the morning before breakfast, and the second time 2 hours after lunch or dinner. Please keep track of values and bring with you to doctor's appointment for review. Usted knowles comenzado con 2 nuevos medicamentos; 1. Metformina 850 mg por va oral, 2 veces al da. Gemma medicamento le ayudar a mantener estable thakkar nivel de azcar en la ted. Puede causar diarrea. [place] es normal y generalmente se resuelve en las primeras semanas. 2. Lisinopril 10 mg por va oral todos los hardwick. Gemma medicamento ayuda a proteger los riones y controla la presin arterial. Compruebe rebecca azcares en ted 2 veces al da con un kit de anlisis de az car en la ted (se le proporcionar clem receta). Debe revisar el azcar en la ted clem vez por la maana antes del desayuno y la segunda vez 2 horas despus del almuerzo o la oscar. Por favor, mantenga un registro de los valores y traiga con usted a la carrie del mak para thakkar revisi n. Follow-up Provider: [facility] Follow-up with PCP in: 1 week Rafael Padilla DO Dec 15, 2016 12:00
--- NOTE | 2016-12-15 12:09 | PCM.DC.MED ---
Discharge Summary Date of Service Dec 15, 2016 Dates of Hospitalization Date of Hospital Admission Dec 10, 2016 at 23:21 Date of Discharge: Dec 15, 2016 Providers: Admitting Physician: Yusuf Bonds MD Primary Care Physician: Breanna Attending Physician: Yusuf Bonds MD Diagnosis at Time of Discharge Diagnosis at Time of Discharge 1. Acute pancreatitis 2. Diabetes Mellitus type 2 Procedures XRay, CTs & MRIs CT Abd / Pelvis Interpretation 12/10/2016 CONCLUSION: Findings of moderately severe acute pancreatitis. Mild Ascites. Minimal left pleural effusion. No finding of necrotizing necrotizing identified. Transmitted to the ED at 22:38 by Sukh Babin M.D ECG 12 Lead Sinus tachycardia with a rate of 120 Prolonged QT interval Brief History As per admission HPI by admitting physician, "Per patient, states heavy EtOH use last Friday, 20 beers in the evening, then woke up on Friday morning with nausea, vomiting and significant epigastric pain that wraps around the back. Pain was unabated, characterized as somewhat wax and wane pattern. Patient was unable to tolerate any by mouth intake. Patient admits he has not been eating or drinking well for the past 2 days. Patient sought help at urgent care yesterday evening, where he was then referred to the ED for further evaluation after discovery of a blood glucose of 422, respiratory rate of 22, in addition to acetone breath. Patient denies any fevers, chills, or night sweats within the last few days. In the ED, patient was found to have elevated lipase of 941, in addition to an anion gap metabolic acidosis with ketones and glucose>1000 in the urine. Patient was thus admitted to the ICU for diabetic ketoacidosis in addition to acute pancreatitis, and possible alcohol withdrawal. Patient admits to endorsing at least 20 cans of 3% EtOH beers every other day for over 10 years. Patient has tried to quit once 7 years ago, at that time denies any withdrawal symptoms. Patient denies any smoking or use of street drugs. Patient states that he is usually in a state of good health thus, patient has not been seen by a primary care provider for at least over 5 years. Patient is unaware that he has any histories of diabetes. Pt is unaware of symptoms of polydipsia, polyphagia, or polyuria. " Hospital Course Diabetic ketoacidosis, present on admission, resolved Diabetes type II, present on admission, active - Likely secondary to pancreatitis in the setting of undiagnosed diabetes type II, noted to have hA1c of 13 on admission. - Initial anion gap at least 24.6, with ketones in the urine, and glucose of 458. Starting 12/12 afternoon, improved with anion gap closing and glucose in the mid to upper 100's. Has remained below 200 since. During hospitalization patient was treated with combination of long and short acting insulins. He received a dosage of Lantus 35 units nightly in addition to mealtime sliding scales. It was discussed the possibility of patient continuing injectable insulin and discharged home but he did not yet feel ready to undertake this and preferred to trial oral agents initially and then follow- up with primary care physician in ideally educator senior clinical to discuss the possibility of starting injectable insulin in the future should it be necessary. I believe this was a reasonable alternative especially given new diagnosis. As such patient was started on metformin 850 mg by mouth twice a day at time of discharge, with plan to follow-up and establish care at [facility] clinic in 1 week to further evaluate this condition and consider further interventions as appropriate. Patient will continue to trend fingerstick blood glucose readings and present these on follow-up visit. Diabetic education was additionally provided her inpatient hospitalization, and they reviewed diabetic diet recommendations / provided handouts. Acute pancreatitis, present on admission, improving - has classic presentation abdominal pain with elevated lipase and CT-imaging to support - likely secondary to heavy EtOH abuse. BISAP score =1, low risk mortality. -Patient initially started on clear fluids, December 12 diet advanced accordingly. Stay on a full diet by December 14 and discharged December 15 stable condition with abdominal pain greatly improved and nearly resolved. 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 Albumin 2.4 Has been evaluated by cell feed department supervisor as noted above with recommendations provided Alcohol use disorder, present on admission, active - Supplement IV thiamine, start folate and vitamin B12 when patient can tolerate PO - Patient was effectively detoxed utilizing [facility] protocol - He declined formal support for alcohol dependency , believes he will be able to cease use on his own . Persistent tachycardia - Still present though downward trending on discharge, believe this is related to persistent pain secondary to pancreatitis in addition to possible residual sequelae of alcohol detoxification. Nonetheless given medical stability and improving medical condition without evidence of underlying infection or other acute process he was discharged home, pulses ranging high 90s to 100s. Elevated blood pressure, present on admission, active - likely essential hypertension, probable obstructive sleep apnea - Start Lisinopril 10 mg PO daily, also offer him protection in the setting of diabetes. -Should consider sleep study outpatient Pseudohyponatremia, present on admission, resolved Hypocalcemia, present on admission, - replenished - Resolved the time of discharge QT prolongation, present on admission, stable - QTc 525 - judicious use of ondansetron, no longer needed for greater than 24 hours at time of discharge.advanced effectively. Morbid obesity, present on admission, stable - consulted dietitian. Will need weight lost strategies in addition to DM managements Exam Vital Signs (Last) Date Time Temp Pulse Resp B/P Pulse Ox O2 Delivery O2 Flow Rate FiO2 12/15/16 08:25 37.6 103 18 134/85 95 Room Air 12/14/16 07:31 2.00 Test 12/10/16 18:40 12/10/16 20:37 12/10/16 23:27 12/11/16 00:00 Hemoglobin A1c 13.0% (4.8-5.6) Lactic Acid Level 2.0mmol/L (0.4-2.0) Hold Braden Top Tube Received (Received) Ketones Small (Negative) Urine Color Yellow (YELLOW) Urine Appearance Clear (CLEAR,HAZY) Urine pH 5.5 (5.0-8.0) Urine Specific [place] 1.015 (1.003-1.035) Urine Protein Tracemg/dL (NEG,TRACE) Urine Glucose (UA) >1000mg/dL (NEGATIVE) Urine Ketones >80mg/dL (NEGATIVE) Urine Occult Blood Trace (NEGATIVE) Urine Nitrite Negative (NEGATIVE) Urine Bilirubin Negative (NEGATIVE) Urine Urobilinogen Normalmg/dL (NORMAL) Urine Leukocyte Esterase Negative (NEGATIVE) Urine RBC 0-2/hpf (0-2) Urine WBC 0-5/hpf (0-5) Urine Epithelial Cells Few/hpf (NONE-MOD) Urine Crystals None seen (NONE SEEN) Urine Bacteria Few/hpf (NONE-FEW) Urine Hyaline Casts None/lpf (NONE) Urine Granular Casts None seen (NONE SEEN) Urine Waxy Casts None seen (NONE SEEN) Urine Red Blood Cell Casts None seen (NONE SEEN) Urine White Blood Cell Casts None seen (NONE SEEN) Urine Mucus None seen (None Seen) Urine Trichomonas None seen (NONE SEEN) Urine Yeast None (NONE SEEN) Urinalysis Comment None Urine Culture Reflexed Not indicated Triglycerides Level 379.2mg/dL (0-149) Osmolality 302 (275-300) Test 12/11/16 02:30 12/12/16 04:15 12/13/16 02:30 12/14/16 16:35 Ionized Calcium 0.87mmol/L (1.17-1.32) Total Bilirubin 0.6mg/dL (0.0-1.2) Aspartate Amino Transf (AST/SGOT) 16U/L (0-50) Alanine Aminotransferase (ALT/SGPT) 14U/L (0-44) Alkaline Phosphatase 62U/L (25-150) Total Protein 6.2g/dL (6.4-8.4) Magnesium Level 2.3mg/dL (1.6-2.6) Albumin 2.4g/dL (3.4-5.0) White Blood Count 7.7th/mm3 (3.8-10.1) Red Blood Count 4.11mil/mm3 (4.40-5.80) Hemoglobin 13.2g/dL (13.8-17.2) Hematocrit 38.9% (41.0-50.0) Mean Corpuscular Volume 94.6fL (81-100) Mean Corpuscular Hemoglobin 32.1pg (27.0-35.0) Mean Corpuscular Hemoglobin Concent 33.9% (32.0-37.0) Red Cell Distribution Width 13.1% (12.3-15.4) Platelet Count 172bil/L (150-400) Neutrophils (%) (Auto) 65.7% (40-74) Lymphocytes (%) (Auto) 18.9% (14-46) Monocytes (%) (Auto) 11.0% (4-12) Eosinophils (%) (Auto) 3.6% (0-5) Basophils (%) (Auto) 0.4% (0-3) Lipase 165U/L (13-60) Phosphorus Level 3.0mg/dL (2.5-4.9) Test 12/15/16 02:35 Sodium Level 134mEq/L (134-144) Potassium Level 3.7mEq/L (3.5-5.2) Chloride Level 92mEq/L (97-108) Carbon Dioxide Level 23mmol/L (18-29) Blood Urea Nitrogen 5mg/dL (6-20) Creatinine 0.32mg/dL (0.76-1.27) Estimat Glomerular Filtration Rate 331mL/min (>59) Glucose Level 219mg/dL (60-99) Calcium Level 8.8mg/dL (8.5-10.1) Microbiology Results Microbiology 12/11/16 MRSA (PCR) - negative General: Alert, Oriented X3, Cooperative, No Acute Distress Mouth: Mucous Membr Moist/[place] Chest & Lungs: Clear to auscultation & percussion Cardiovascular: Regular Rate/Rhythm Abdomen: Non-tender, Non-distended, Other (obese NABS, no guarding) Extremities: No cyanosis/clubbing/edma bilat Neurological: Grossly Neurologically Intact Discharge Medications Discharge Medications Lisinopril (Zestril) 10 Mg Tablet 10 MG PO DAILY Prescribed by: RAFAEL PADILLA DO Metformin (Metformin) 850 Mg Tablet 850 MG PO BID Prescribed by: RAFAEL PADILLA DO As needed oxyCODONE-Acetaminophen 5-325 mg (oxyCODONE-Acetaminophen 5-325 mg) 1 Each Tablet 1 TAB PO Q4H PRN PRN For Pain Prescribed by: RAFAEL PADILLA DO Followup Plan Disposition: Patient discharged home with plan to follow-up with primary care physician/ Establishment of care, with [facility] within 1 week of discharge Follow-up plan You have been started on 2 new medications; 1. Metformin 850mg by mouth, 2 times per day. This medication will help keep your blood sugar stable. It can cause diarrhea. This is normal and usually resolved in the first few weeks. 2. Lisinopril 10mg by mouth every day. This medication helps protect your kidneys and controls blood pressure. Usted knowles comenzado con 2 nuevos medicamentos; 1. Metformina 850 mg por va oral, 2 veces al da. Gemma medicamento le ayudar a mantener estable thakkar nivel de azcar en la ted. Puede causar diarrea. [place] es normal y generalmente se resuelve en las primeras semanas. 2. Lisinopril 10 mg por va oral todos los hardwick. Gemma medicamento ayuda a proteger los riones y controla la presin arterial. Discharge Diet: Diabetic, Other (Low sugar, low cardbohydrate. ) Discharge Activity: No restrictions Patient Instructions You have been started on 2 new medications; 1. Metformin 850mg by mouth, 2 times per day. This medication will help keep your blood sugar stable. It can cause diarrhea. This is normal and usually resolved in the first few weeks. 2. Lisinopril 10mg by mouth every day. This medication helps protect your kidneys and controls blood pressure. Usted knowles comenzado con 2 nuevos medicamentos; 1. Metformina 850 mg por va oral, 2 veces al da. Gemma medicamento le ayudar a mantener estable thakkar nivel de azcar en la ted. Puede causar diarrea. [place] es normal y generalmente se resuelve en las primeras semanas. 2. Lisinopril 10 mg por va oral todos los hardwick. Gemma medicamento ayuda a proteger los riones y controla la presin arterial. Follow-up Provider: [facility] Follow-up with PCP in: 1 week Time spent 55 minutes copies to: [facility] Vital Signs Vital Sign - Last Date Time Temp Pulse Resp B/P Pulse Ox O2 Delivery O2 Flow Rate FiO2 12/15/16 08:25 37.6 103 18 134/85 95 Room Air 12/14/16 07:31 2.00 Intake and Output 12/14/16 12/14/16 12/15/16 Cumulative From/Thru 14:59 22:59 06:59 12/10/16 18:10 - 12/15/16 06:46 Intake Total 2348 ml 986 ml 11763 ml Output Total 1725 ml 1875 ml 08748 ml Balance 623 ml -889 ml 45240 ml Intake Oral 1740 ml 874 ml 6808 ml IV Total 608 ml 112 ml 06333 ml Output Urine Total 1725 ml 1875 ml 00535 ml # Voids 8 # Bowel Movements 2 5 Lab and Diagnostics Result Diagram: 12/13/16 0230 12/15/16 1245 Rafael Padilla DO Dec 15, 2016 12:09
--- NOTE | 2016-12-15 14:14 | NUR ---
Social Work Note: Discharge Data& Assessment: Per pt is medically ready to discharge home via POV. Kenny Diego is a 36 year old male admitted on 12/10/2016 for acute pancreatitis and hypoglycemia. Per pt is medically improved and ready for discharge. SW met with pt and pt family at bedside to confirm discharge plan and assess for any unmet needs. Pt family provided with another Romanian financial intern application, $4 Romanian medication list for [facility] prescription program and information on his PCP appointment with [facility] on January 22 at 1:00p.m. Pt and pt family deny any other questions or concerns. No other discharge needs identified. Plan: Per pt is medically ready to discharge home via POV with a [facility] follow up appointment on January 22. Pt and pt family deny any other questions or concerns. No other discharge needs identified. KIANA Lambert
--- NOTE | 2016-12-15 15:09 | NUR ---
Discharge Note: Discussed discharge instructions and medications with patient and his . Hardcopy Rx was given to patient along with educational information. Patient is able to ambulate in room and halls without report of CP, dizziness or SOB. Tolerating consistent cab diet without report of N/V/D or constipation. States abdominal pain is tolerable at /10. Patient verbalized understanding of follow up appointments. All questions were answered and needs attended to. IV's were DC'd intact by RN. RN accompanied patient to personal vehicle with all personal belongings and was transported home by his .
--- NOTE | 2016-12-16 14:36 | NUR ---
DM follow-up call attempted post discharge call via sign language interpreter [phone] no answer at number listed
== END 2016-12-15 14:55 | disposition home or self-care (01) | DRG 438 ==
LOC: SED 17:50 → CCU 23:21 → PCC 12-11 19:46 → CCU 12-11 21:45 → PCC 12-12 06:35
PROVIDERS: ADMIT Internal Medicine; ATTEND Internal Medicine
PROC: 4A033R1 Measurement of Arterial Saturation, Peripheral, Percutaneous Approach (ICD-10-PCS; principal; 2016-12-11)
DX: K85.90 Acute pancreatitis without necrosis or infection, unspecified (principal); E13.10 Other specified diabetes mellitus with ketoacidosis without coma; Z68.42 Body mass index [BMI] 45.0-49.9, adult; E46 Unspecified protein-calorie malnutrition; E66.01 Morbid (severe) obesity due to excess calories; R00.0 Tachycardia, unspecified; E83.51 Hypocalcemia; Z72.89 Other problems related to lifestyle